=== PATIENT | male | born 1945 | race Caucasian/White ===

== ENCOUNTER 2017-12-26 10:58 | Observation (INO) ==
--- NOTE | 2017-12-26 11:07 | Emergency Department Note ---
Disposition Clinical Impression: Bradycardia, Tobacco abuse Pacemaker malfunction Qualifiers: Encounter type: initial encounter Qualified Code(s): T82.111A - Breakdown ( mechanical) of cardiac pulse generator (battery), initial encounter Disposition: Admitted As Inpatient Condition: Fair [facility] Provider[facility] - Forms: ED Satisfaction Letter Arrhythmia/Palpitations HPI - General Chief Complaint: ED Arrhythmia/Palpitations Stated Complaint: bradycardia Time Seen by Provider: 12/26/17 11:01 Source: patient, EMS Mode of arrival: EMS Limitations: no limitations Nursing Notes Reviewed: Yes Vital Signs Reviewed: Yes - History of Present Illness HPI Narrative: 72-year-old male with history of hypertension, tobacco use status post pacemaker proximally 8 years ago presents for evaluation from the [place] of fatigue. Patient states symptom onsets been over the past week. Patient states that these had a low heart rate. Patient's also noted some intermittent chest pain during this time. Patient reports that his chest pain was anterior chest pain lasting approximately 5 minutes with exertion and resolves with rest. Did have some right arm pain as well. Patient currently denies symptoms. Denies any chest pain currently. Denies any radiation of chest pain symptoms. No nausea vomiting or diaphoresis. No fevers or cough. Patient states he typically does not wear oxygen. [facility] his heart rate was noted be 39 with a preserved blood pressure. Patient is symptomatic with his bradycardia. - Related Data Allergies Allergy/AdvReac Type Severity Reaction Status Date / Time simvastatin Allergy Difficulty Verified 12/26/17 11:13 Breathing All systems ED: reviewed and negative except as stated. Constitutional: Denies: fever Cardiovascular: Reports: chest pain Respiratory: Denies: cough, dyspnea Gastrointestinal: Denies: abdominal pain, nausea, vomiting Past Medical History - Past Medical History Source: patient Physical Exam - General Limitations: no limitations General appearance: alert, in no apparent distress - Head Head exam: atraumatic, normal inspection - Eye Eye exam: Present: normal appearance, EOMI - ENT ENT exam: normal exam, mucous membranes moist - Neck Neck exam: Present: normal inspection, trachea midline - Chest Chest inspection: Present: normal inspection, symmetric chest wall rise - Respiratory Respiratory exam: Present: normal lung sounds bilaterally. Absent: respiratory distress - Cardiovascular Cardiovascular exam: Present: normal rhythm, bradycardia. Absent: systolic murmur - Abdominal Exam Abdominal exam: Present: soft, Non-Tender - Extremities Exam Extremities exam: Present: normal inspection. Absent: pedal edema - Back Exam Back exam: Present: normal inspection - Neurological Exam Neurological exam: Present: alert, oriented X3, CN II-XII intact - Skin Skin exam: Present: warm, dry, intact, normal color Course Course Narrative: Patient seen and examined. Patient's workup was initiated by the prior provider at the [place]. Included a chest x-ray which showed no evidence of acute pulmonary disease. Patient will get pacemaker interrogated. Basic labs including a troponin and BNP. Disposition admission. - Reevaluation(s) Reevaluation #1: Discussed with [employer] to states there is an pedis in the right ventricular lead since December [id number]. Patient's EKG appears to be sensed and then paste every other beat. [employer] ascending a tech for further evaluation. Time: 11:34 Reevaluation #2: Cardiology at bedside to evaluate the patient. Time: 11:49 - Consultations Consultation #1: Discussed with Dr. Velvet Ohara who will sent someone down to the ER to help evaluate the patient's pacemaker. Time: 11:39 Vital Signs Temperature 98.6 F 12/26/17 11:02 Pulse Rate 37 12/26/17 11:02 Respiratory Rate 16 12/26/17 11:02 Blood Pressure 148/72 12/26/17 11:02 O2 Sat by Pulse Oximetry 96 12/26/17 11:02 Temperature 98.6 F 12/26/17 11:02 Pulse Rate 36 12/26/17 11:56 Respiratory Rate 15 12/26/17 11:09 Blood Pressure 136/68 12/26/17 11:56 O2 Sat by Pulse Oximetry 97 12/26/17 11:56 Oxygen Delivery Oxygen Delivery Room Air Arrhythmia/Palpitations - MDM Narrative Medical decision making narrative: Patient presents with symptomatic bradycardia. Patient's pacemaker was interrogated and was found to have a broken lead. Patient pressures preserved. Patient's case was discussed with the account executive key accounts and has been at bedside. Patient will likely need intervention. Patient's been resting comfortably. Patient had basic labs which were unremarkable. Patient's fatigue is likely related to his bradycardia given his pacemaker malfunction with lead misplacement. Patient will be admitted to hospital service for further evaluation and management of his bradycardia. - Lab Data Lab results reviewed: Yes I reviewed the patient's lab results. Result diagrams: 12/26/17 11:17 12/26/17 11:17 Lab Results 12/26/17 12/26/17 12/26/17 Range/Units 11:17 11:17 11:17 WBC 6.4 (4.3-11.1) K/mcL RBC 4.69 (4.19-5.50) M/mcL Hgb 14.8 (12.9-16.9) g/dL Hct 43.9 (37.5-50.1) % MCV 93.6 (83.0-100.0) fL MCH 31.6 (28.0-33.3) pg MCHC 33.7 (31.6-35.5) g/dL RDW 14.9 H (11.5-14.5) % Plt Count 138 L (140-400) K/mcL MPV 9.9 (9.4-12.4) fL Immature Gran % 0.2 (0-4) % Seg Neutrophils % 64.8 % Lymphocytes % 24.7 % Monocytes % 8.9 % Eosinophils % 0.9 % Basophils % 0.5 % Neutrophils # 4.1 (1.6-8.9) K/mcL Lymphocytes # 1.6 (0.6-4.6) K/mcL Monocytes # 0.6 (0.0-1.3) K/mcL Eosinophils # 0.1 (0.0-0.6) K/mcL Basophils # 0.0 (0.0-0.2) K/mcL Sodium 139 (136-145) mEq/L Potassium 3.8 (3.5-5.1) mEq/L Chloride 108 H (98-107) mEq/L Carbon Dioxide 24 (23-29) mEq/L BUN 19 (8-23) mg/dL Creatinine 0.91 (0.70-1.30) mg/dL Est GFR ( Amer) > 60 (> 60) Est GFR (Non-Af Amer) > 60 (> 60) BUN/Creatinine Ratio 21 (6-26) Glucose 125 H (70-105) mg/dL Calculated Osmolality 292 (280-300) Calcium 8.4 L (8.6-10.3) mg/dL Troponin I < 0.03 (< 0.04) ng/mL B-Natriuretic Peptide 169 H (Less than 100) pg/mL - Radiology Data Radiology results reviewed: Yes I reviewed the patient's radiology results. - EKG Data EKG attestation: Yes I reviewed and interpreted this EKG. Rate: bradycardia [place]/QRS: right axis deviation Voltage: decreased voltage throughout T wave inversions noted in: III, v1 Interpretation: no acute changes, nonspecific ST-T wave changes
[2017-12-26] MEDS ORDERED: Aspirin 81 MG TAB.CHEW PO ONE (11:23)
[2017-12-26 11:38] LABS: Basophils % 0.5 %; Eosinophils # 0.1 K/mcL (0.0-0.6); Eosinophils % 0.9 %; Hematocrit 43.9 % (37.5-50.1); Hemoglobin 14.8 g/dL (12.9-16.9); Immature Granulocytes % 0.2 % (0-4); Lymphocytes # 1.6 K/mcL (0.6-4.6); Lymphocytes % 24.7 %; Mean Corpuscular HGB Conc 33.7 g/dL (31.6-35.5); Mean Corpuscular Hemoglobin 31.6 pg (28.0-33.3); Mean Corpuscular Volume 93.6 fL (83.0-100.0); Mean Platelet Volume 9.9 fL (9.4-12.4); Monocytes # 0.6 K/mcL (0.0-1.3); Monocytes % 8.9 %; Neutrophils # 4.1 K/mcL (1.6-8.9); Platelet Count 138 K/mcL (140-400); Red Blood Count 4.69 M/mcL (4.19-5.50); Red Cell Distribution Width 14.9 % (11.5-14.5); Segmented Neutrophils % 64.8 %
[2017-12-26 11:49] LABS: BUN/Creatinine Ratio 21 (6-26); Blood Urea Nitrogen 19 mg/dL (8-23); Calcium 8.4 mg/dL (8.6-10.3); Carbon Dioxide 24 mEq/L (23-29); Chloride 108 mEq/L (98-107); Glucose 125 mg/dL (70-105); Osmolality,Calculated 292 (280-300); Potassium 3.8 mEq/L (3.5-5.1); Sodium 139 mEq/L (136-145); eGFR For Non-African Americans > 60 (> 60)
[2017-12-26 11:50] LABS: Troponin I < 0.03 ng/mL (< 0.04)
--- NOTE | 2017-12-26 12:14 | Electrophysiology Consult Note ---
<Clay Carmona R - Last Filed: 12/26/17 12:11> Date of Encounter: 12/26/17 Time of Encounter: 12:00 Assessment and Plan (1) Bradycardia Current Visit: Yes Status: Acute Per Cardiology: Suspected potential lead fracture with subsequent lack of pacer capture contributing to fatigue, dizziness, chest pain, and his exertion. Troponin negative. Will check echo now. Pacer interrogation showed elevated impedance. Reviewed and discussed with Dr. Jean-Paul Ohara, [employer] device rep in for manual evaluation. Anticipated lead change today. Patient family verbalized understanding and agree to plan. All questions answered. Discussion w patient/family: The assessment and plan as outlined above was discussed with the patient and/or family members who expressed understanding and agreement. All questions were answered. Thank you for involving us in the care of your patient. Please call with any questions. History of Present Illness Consult date: 12/26/17 Requesting physician: Jose A Uribe Consult reason: Bradycardia, Fatigue, Pacer malfunction Chief complaint: Fatigue History of present illness: Mr. Reyes is a 72-year-old male with history of hypertension, tobacco, and history of pacemaker implantation by Dr. Celeste about 8 years ago. Patient reports lack of cardiology to follow-up since that time. Critical G consult for fatigue, bradycardia, concern for pacer malfunction. Patient seen with family at bedside. Reports his normal state of health up until about one week ago. Reports sudden onset of fatigue. Additionally expressing episodes of dizziness, however denies any syncope or falls. He denies any active bleeding or blood loss. Reports for the past one week has noticed short of breath at rest and with exertion. Reports some intermittent chest pressure with exertion that subsides after a few minutes with resting. He denies any recent fever, chills, nausea, vomiting, infectious process. Denies any other concerns or complaints. Past Med Surg Social Fam HX - Past Medical History Attestation: Yes The following information was validated with the patient. Source: patient, old records reviewed, obtained from family Medical history: coronary artery disease, diabetes, hypertension Psychiatric history: anxiety, depression, PTSD - Social History Smoking Status: Current every day smoker Smokeless Tobacco Status: No Alcohol use: occasionally Drug use: none Medications and Allergies 3 Allergy/AdvReac Type Severity Reaction Status Date / Time simvastatin Allergy Difficulty Verified 12/26/17 11:13 Breathing All Systems Review: The remainder of the systems were reviewed and are negative - Constitutional Constitutional: fatigue - Cardiovascular Cardiovascular: as per HPI, chest pain with exertion, dyspnea at rest, dyspnea on exertion, slow heart rate Physical Examination Vital Signs, Last 4 Hours Temp Pulse Resp BP Pulse Ox 12/26/17 11:56 36 136/68 97 12/26/17 11:09 38 15 148/72 97 12/26/17 11:02 98.6 F 37 16 148/72 96 General: Conversant, No Apparent Distress HEENT: Atraumatic, Normocephaly, Mucus Membranes Moist Neck: No JVD, Normal carotid pulses Cardiac: Normal S1 and S2, No Murmur, Other (HR 30's) Lungs: Normal Breath Sounds, No Wheeze, Rales, Rhonchi Neuro: Alert and responsive, No focal deficits noted Abdomen: Soft, Non-Tender Skin: No rashes noted on visualized skin Musculoskeletal: No Chest Wall Tenderness Extremities: No Clubbing, No Cyanosis, No Edema, Normal Pulses Results 12/26/17 11:17 12/26/17 11:17 Lab Results Laboratory Tests 12/26/17 12/26/17 12/26/17 11:17 11:17 11:17 Hgb 14.8 Hct 43.9 Creatinine 0.91 Est GFR (Non-Af Amer) > 60 Troponin I < 0.03 B-Natriuretic Peptide 169 H - Imaging and Cardiology Echo: pending - EKG Interpretation EKG results cardiology: personally reviewed (pacer lack of capture) Consult Discharge Plan - Plan <Jean-Paul Ohara - Last Filed: 12/26/17 14:04> Date of Encounter: 12/26/17 - Attending Attestation I have personally performed a face to face evaluation on this patient. I have reviewed and agree with the care plan. History and Exam by me shows: I have personally performed a face to face evaluation on this patient. I have reviewed and agree with the care plan. History and Exam by me shows: Known history of AV block and pacemaker. Has not had device check for some time. has been feeling poorly for a week or more. Found to have RV lead fracture on device interrogation. Will plan for RV lead replacement. Assessment and Plan Discussion w patient/family: The assessment and plan as outlined above was discussed with the patient and/or family members who expressed understanding and agreement. All questions were answered. Thank you for involving us in the care of your patient. Please call with any questions. History of Present Illness History of present illness: Mr. Reyes is a 72 year old male All Systems Review: The remainder of the systems were reviewed and are negative Physical Examination Vital Signs, Last 4 Hours Pulse Resp BP Pulse Ox 12/26/17 13:03 62 15 161/90 96 Results 12/26/17 11:17 12/26/17 11:17
[2017-12-26] MEDS ORDERED: Naloxone 0.4 MG/ML INJ IVP PRN (13:36)
[2017-12-26] MEDS ORDERED: Acetaminophen 325 MG TABLET PO PRN (13:36)
[2017-12-26] MEDS ORDERED: traMADol 50 MG TABLET PO PRN (13:36)
[2017-12-26] MEDS ORDERED: *HR* Dextrose 50 % in Water (Syg) 50 ML SYRINGE IVP PRN (13:38)
[2017-12-26] MEDS ORDERED: D5% in Water 1,000 ML IVC PRN (13:38)
[2017-12-26] MEDS ORDERED: Dextrose Gel 15 GM/37.5 ML TUBE PO PRN ×2 (13:38)
--- NOTE | 2017-12-26 13:49 | Internal Med History&Physical ---
Addendum entered and electronically signed by Opal Ugalde 12/26/17 14:49: Original Note: <Opal Ugalde - Last Filed: 12/26/17 13:46> Date of Encounter: 12/26/17 Time of Encounter: 13:46 Internal Medicine - H&P: HPI Admitted From: Home Plans for Post Hospital Care: Home History of present illness: Mr. 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 Patient states symptom onsets been over the past week. Patient states that these had a low heart rate. Patient's also noted some intermittent chest pain during this time. Patient reports that his chest pain was anterior chest pain lasting approximately 5 minutes with exertion and resolves with rest. Did have some right arm pain as well. Patient currently denies symptoms. Denies any chest pain currently. Denies any radiation of chest pain symptoms. No nausea vomiting or diaphoresis. No fevers or cough. Patient states he typically does not wear oxygen. [facility] his heart rate was noted be 39 with a preserved blood pressure. Patient is symptomatic with his bradycardia. Cardiology was consulted at the ED. [employer] was contacted and pacemaker setting was adjusted by the personnel from [employer]. Telemetry monitoring showed good capture with heart rate around 60, patient reported improved symptoms. Patient will be admitted as observation for further evaluation and management. Past Med Surg Social Fam HX - Past Medical History Medical history: coronary artery disease, diabetes, hypertension Psychiatric history: anxiety, depression, PTSD - Social History Smoking Status: Current every day smoker Smokeless Tobacco Status: No Alcohol use: occasionally Drug use: none Internal Medicine - H&P: Meds 3 Allergy/AdvReac Type Severity Reaction Status Date / Time simvastatin Allergy Difficulty Verified 12/26/17 14:03 Breathing All Systems PM: A 10-system review of systems was performed and is negative for pertinent findings except as documented above in the HPI. Review of systems: REVIEW OF SYSTEMS: CONSTITUTIONAL: No weight loss, fever, chills, weakness or fatigue. HEENT: Eyes: No visual loss, blurred vision, double vision or yellow sclerae. Ears, Nose, Throat: No hearing loss, sneezing, congestion, runny nose or sore throat. SKIN: No rash or itching. CARDIOVASCULAR: see HPI. RESPIRATORY: No shortness of breath, cough or sputum. GASTROINTESTINAL: No anorexia, nausea, vomiting or diarrhea. No abdominal pain or blood. GENITOURINARY: No dysuria, urgency, or frequency. NEUROLOGICAL: No headache, dizziness, syncope, paralysis, ataxia, numbness or tingling in the extremities. No change in bowel or bladder control. MUSCULOSKELETAL: No muscle, back pain, joint pain or stiffness. HEMATOLOGIC: No anemia, bleeding or bruising. LYMPHATICS: No enlarged nodes. No history of splenectomy. PSYCHIATRIC: No history of depression or anxiety. ENDOCRINOLOGIC: No reports of sweating, cold or heat intolerance. No polyuria or polydipsia. - Constitutional Vitals: Temp Pulse Resp BP Pulse Ox 98.6 F 62 15 161/90 96 12/26/17 11:02 12/26/17 13:03 12/26/17 13:03 12/26/17 13:03 12/26/17 13:03 General appearance: Present: A&O X 3 Exam: PHYSICAL EXAMINATION: GENERAL APPEARANCE: The patient is alert, oriented and in no acute distress. HEENT: Head is normocephalic. The sinuses are nontender. Pupils are equal and reactive. The nares are patent. Oropharynx clear without lesions. NECK: Supple without lymphadenopathy. HEART: Regular rate and rhythm. LUNGS: No crackles or wheezes are heard. ABDOMEN: Soft, nontender, nondistended with good bowel sounds heard. Inguinal area is normal. EXTREMITIES: Without cyanosis, clubbing or edema. NEUROLOGICAL: Gross nonfocal. SKIN: Warm and dry without any rash. Internal Med - H&P Results - Labs CBC & Chem 7: 12/26/17 11:17 12/26/17 11:17 - Assessment and plan (1) Bradycardia Current Visit: Yes Status: Acute Assessment and plan: 72-year-old male with past medical history of high grade AV block status post pacemaker 8 years ago. Patient presented with severe bradycardia with HR between 30-40. He had severe fatigue and weakness. EKG revealed failure of capture. [employer] was contacted and the pacemaker setting was adjusted by their personnel. Repeat EKG showed good ventricular capture with HR at 60. Patient instantly reported improved symptoms. Cardiology was consult, echocardiogram was ordered. (2) Pacemaker malfunction Current Visit: Yes Status: Acute Assessment and plan: Cardiology and [employer] are following. Qualifiers: Encounter type: initial encounter Qualified Code(s): T82.111A - Breakdown ( mechanical) of cardiac pulse generator (battery), initial encounter (3) Diabetes mellitus Current Visit: Yes Status: Acute Assessment and plan: Hold home oral agents, started patient on insulin sliding scale, continue medications for diabetic neuropathy. Qualifiers: Diabetes mellitus type: type 2 Diabetes mellitus care home insulin use: without care home use Diabetes mellitus complication status: with neurologic complications Diabetes mellitus complication detail: with unspecified neuropathy Qualified Code(s): E11.40 - Type 2 diabetes mellitus with diabetic neuropathy, unspecified (4) DVT prophylaxis Current Visit: Yes Status: Acute Assessment and plan: Heparin subcutaneous. - Time Spent With Patient Total time spent is greater than 50% in coordination of care (as documented) at patient's floor/unit and/or counseling patient: Greater than 35 minutes <Lacho Alaniz - Last Filed: 12/26/17 18:31> Date of Encounter: 12/26/17 Internal Medicine - H&P: HPI History of present illness: Mr. Reyes is a 72 year old male All Systems PM: A 10-system review of systems was performed and is negative for pertinent findings except as documented above in the HPI. - Constitutional Vitals: Temp Pulse Resp BP Pulse Ox 97.6 F 67 15 142/85 96 12/26/17 17:30 12/26/17 18:00 12/26/17 18:00 12/26/17 18:00 12/26/17 18:00 Internal Med - H&P Results - Labs CBC & Chem 7: 12/26/17 11:17 12/26/17 11:17 - Impressions ITS Impressions Chest X-Ray 12/26/17 16:22 IMPRESSION: Calcific atherosclerotic disease aorta. No acute disease. New left ventricular lead placed without removal of old left ventricular lead. D/ / Brian Riojas / Brian Riojas Interpreting Provider: Brian Riojas - Attending Attestation I saw and examined this patient independently, and my medical decision making was reviewed with the REPORTING ANALYST on 2017. I agree with the documented findings, assessment and treatment plan as described in the progress note or discharge summary. Patient just came back from [employer]y lab[employer], he tolerated procedure, feels great, HR 67 , denies chest pain and SOB. monitor ON, judie discharge tomorrow when cardiology is ok - Time Spent With Patient Total time spent is greater than 50% in coordination of care (as documented) at patient's floor/unit and/or counseling patient:
--- NOTE | 2017-12-26 14:35 | Pre-Sedation Evaluation ---
Pre-sedation evaluation - Pre-sedation checklist Date of procedure: 12/26/17 Procedure: RV lead replacement Recent Vitals: Last Vital Signs Temp 98.6 F 12/26/17 11:02 Pulse 62 12/26/17 13:03 Resp 15 12/26/17 13:03 BP 161/90 12/26/17 13:03 Pulse Ox 96 12/26/17 13:03 H&P (including ROS) documented in medical record: Yes Previous reaction to sedatives/anesthetics: No Dietary Status: NPO 6 hours prior to procedure Airway Assessment: Patient can open mouth completely, TMJ function normal, Micrognathia (under-bite, receding chin) absent Dentition: No loose teeth or bridges Possible difficult airway: No ASA Classification *see protocol: CLASS II-Mild systemic disease Plan of Care: Pt appropriate candidate for procedure/moderate/conscious sedation , Risks/benefits of procedure/sedation discussed w/ patient/family Cardiac Registry (Cardio Only) - Functional Capacity - Clincal Frailty Scale
[2017-12-26] MEDS ORDERED: *HR* FentaNYL (PF) 100 MCG/2 ML VIAL ONE (15:07)
[2017-12-26] MEDS ORDERED: *HR* Midazolam HCl 2 MG/2 ML VIAL ONE (15:07)
[2017-12-26] MEDS ORDERED: 0.9 % Sodium Chloride 500 ML ONE (15:07)
[2017-12-26] MEDS ORDERED: ISOVUE-370 200 ML INFUS..BTL IV ONE (15:08)
[2017-12-26] MEDS ORDERED: Water for inj. (sterile) 10 ML IV ONE (15:08)
[2017-12-26] MEDS ORDERED: 0.9 % Sodium Chloride 1,000 ML ONE (15:08)
[2017-12-26] MEDS: Insulin LISPRO 300 UNITS/3 ML VIAL SQ SCH (17:09)
[2017-12-26] MEDS: Gabapentin 300 MG CAPSULE PO SCH ×2 (18:20→23:08)
[2017-12-26] MEDS: *HR* Heparin 5,000 UNIT/ML VIAL SQ SCH (18:20)
[2017-12-26] MEDS ORDERED: Insulin LISPRO 300 UNITS/3 ML VIAL SQ SCH (21:00)
[2017-12-26] MEDS ORDERED: Gabapentin 300 MG CAPSULE PO SCH (21:00)
[2017-12-27 04:17] LABS: Basophils % 0.5 %; Eosinophils # 0.1 K/mcL (0.0-0.6); Eosinophils % 1.7 %; Hemoglobin 14.4 g/dL (12.9-16.9); Immature Granulocytes % 0.3 % (0-4); Lymphocytes # 1.5 K/mcL (0.6-4.6); Lymphocytes % 22.8 %; Mean Corpuscular HGB Conc 33.5 g/dL (31.6-35.5); Mean Corpuscular Hemoglobin 31.4 pg (28.0-33.3); Mean Corpuscular Volume 93.9 fL (83.0-100.0); Mean Platelet Volume 10.4 fL (9.4-12.4); Monocytes # 0.6 K/mcL (0.0-1.3); Monocytes % 9.1 %; Neutrophils # 4.2 K/mcL (1.6-8.9); Platelet Count 135 K/mcL (140-400); Red Blood Count 4.58 M/mcL (4.19-5.50); Segmented Neutrophils % 65.6 %
[2017-12-27 04:20] LABS: INR 1.4; Prothrombin Time 15.2 Seconds (9.4-12.1)
[2017-12-27 04:22] LABS: Activated Partial Thrombo Time 32.2 Seconds (26.0-36.0)
[2017-12-27 04:39] LABS: BUN/Creatinine Ratio 18 (6-26); Blood Urea Nitrogen 16 mg/dL (8-23); Calcium 8.2 mg/dL (8.6-10.3); Carbon Dioxide 24 mEq/L (23-29); Chloride 108 mEq/L (98-107); Glucose 99 mg/dL (70-105); Osmolality,Calculated 289 (280-300); Potassium 3.8 mEq/L (3.5-5.1); Sodium 139 mEq/L (136-145); eGFR For Non-African Americans > 60 (> 60)
[2017-12-27] MEDS: *HR* Heparin 5,000 UNIT/ML VIAL SQ SCH (05:35)
[2017-12-27] MEDS: Insulin LISPRO 300 UNITS/3 ML VIAL SQ SCH ×2 (07:58→11:37)
[2017-12-27] MEDS: Gabapentin 300 MG CAPSULE PO SCH ×2 (08:02→11:45)
[2017-12-27] MEDS ORDERED: Aspirin Enteric Coated 81 MG Tablet PO SCH (09:00)
[2017-12-27] MEDS ORDERED: Spironolactone 25 MG TABLET PO SCH (09:00)
[2017-12-27] MEDS ORDERED: amLODIPine 5 MG TABLET PO SCH (09:00)
--- NOTE | 2017-12-27 10:51 | Electrophysiology ProgressNote ---
Date of Encounter: 12/27/17 Time of Encounter: 10:48 Assessment and Plan (1) Pacemaker malfunction Current Visit: Yes Status: Acute Now resolved s/p lead revision yesterday. Left chest device site healing well. No bleeding, hematoma or ecchymosis noted. Steri strips intact. Restrictions discussed. Device check and CXR okay. Cardiology/EP signing off. Reconsult PRN. Wound check in 7-10 days, device check in 4-6 weeks and follow-up with Dr. Jean-Paul Ohara in 3 months. Qualifiers: Encounter type: initial encounter Qualified Code(s): T82.111A - Breakdown ( mechanical) of cardiac pulse generator (battery), initial encounter (2) Bradycardia Current Visit: Yes Status: Acute Lead fracture with subsequent lack of pacer capture contributing to fatigue, dizziness, chest pain, and his exertion. Troponins negative. TTE EF preserved. S/P lead revision yesterday, symptoms now resolved. Cardiology/EP signing off. Reconsult PRN. Will coordinate outpt follow-up. Discussion w patient/family: The assessment and plan as outlined above was discussed with the patient and/or family members who expressed understanding and agreement. All questions were answered. Thank you for involving us in the care of your patient. Please call with any questions. I will discuss all the above with Dr. Jean-Paul Ohara and make changes as necessary. Subjective Principal diagnosis: PPM malfunction, bradycardia Interval history: S/P PPM lead revision yesterday. No acute complaints today. CXR and device check okay. TTE reviewed--EF preserved. Objective Vital Signs, Last 4 Hours Temp Pulse Resp BP Pulse Ox 12/27/17 06:49 98.1 F 63 16 133/83 96 Vital Signs Temp Pulse Resp BP Pulse Ox 12/27/17 06:49 98.1 F 63 16 133/83 96 12/27/17 04:00 97.9 F 84 16 141/79 95 12/27/17 00:00 97.8 F 60 15 147/81 95 12/26/17 20:00 98 F 62 16 139/74 96 12/26/17 18:57 97.7 F 66 16 153/81 96 12/26/17 18:30 70 16 167/78 96 12/26/17 18:00 67 15 142/85 96 12/26/17 17:30 97.6 F 60 14 137/73 95 12/26/17 16:58 62 14 148/90 94 12/26/17 16:51 98.1 F 62 16 148/90 97 12/26/17 13:03 62 15 161/90 96 12/26/17 11:56 36 136/68 97 12/26/17 11:09 38 15 148/72 97 12/26/17 11:02 98.6 F 37 16 148/72 96 Intake and Output 12/26/17 12/27/17 12/27/17 23:59 07:59 15:59 Intake Total 100 / 100 300 / 300 600 / 600 Output Total 350 / 350 925 / 925 Balance -250 / -250 -625 / -625 600 / 600 Intake: IV Fluids 100 / 100 Ancef 2,000 MG In 0.9 % Sodium 100 / 100 Chloride 100 ML @ 200 mls/hr IVPB Q8HR [facility] Rx#:[id number] Oral 0 / 0 300 / 300 600 / 600 Output: Urine 350 / 350 925 / 925 Other: Meal Breakfast Percent of Meal Consumed 100% Weight 101.5 kg Blood Glucose* 184 126 Patient Weight 12/27/17 23:59 Weight 101.5 kg General: Conversant, No Apparent Distress HEENT: Atraumatic, Normocephaly, Mucus Membranes Moist Neck: No JVD, Normal carotid pulses Cardiac: Reg Rate and Rhythm, Normal S1 and S2, No Murmur Lungs: Normal Breath Sounds, No Wheeze, Rales, Rhonchi Neuro: Alert and responsive, No focal deficits noted Abdomen: Soft, Non-Tender Skin: Other (left chest device site healing well. No bleeding, hematoma or ecchymosis.) Musculoskeletal: No Chest Wall Tenderness Extremities: No Clubbing, No Cyanosis, No Edema, Normal Pulses Results 12/27/17 03:13 12/27/17 03:13 Lab Results 12/27/17 12/27/17 12/27/17 03:13 03:13 03:13 WBC 6.4 Hgb 14.4 Hct 43.0 Plt Count 135 L INR 1.4 APTT 32.2 Sodium 139 Potassium 3.8 Chloride 108 H Carbon Dioxide 24 BUN 16 Creatinine 0.87 Glucose 99 Calcium 8.2 L Magnesium 2.0 Short CBC 12/27/17 12/26/17 Range/Units 03:13 11:17 WBC 6.4 6.4 (4.3-11.1) K/mcL Hgb 14.4 14.8 (12.9-16.9) g/dL Hct 43.0 43.9 (37.5-50.1) % Plt Count 135 L 138 L (140-400) K/mcL Neutrophils # 4.2 4.1 (1.6-8.9) K/mcL BMP 12/27/17 12/26/17 Range/Units 03:13 11:17 Sodium 139 139 (136-145) mEq/L Potassium 3.8 3.8 (3.5-5.1) mEq/L Chloride 108 H 108 H (98-107) mEq/L Carbon Dioxide 24 24 (23-29) mEq/L BUN 16 19 (8-23) mg/dL Creatinine 0.87 0.91 (0.70-1.30) mg/dL Glucose 99 125 H (70-105) mg/dL Calcium 8.2 L 8.4 L (8.6-10.3) mg/dL Cardiac Enzymes 12/26/17 Range/Units 11:17 Troponin I < 0.03 (< 0.04) ng/mL Impressions Echocardiogram 12/26/17 12:08 Impressions: LVEF 60%. Normal LV chamber size, wall thickness and function. Mild left ventricular diastolic dysfunction. Atypical septal motion consistent with paced rhythm. Normal right ventricular structure and function. No evidence of pulmonary hypertension. A device lead was visualized in the right atrium and right ventricle. No significant valvular dysfunction. Left Ventricular Wall Motion: Rest Echo Findings All wall segments showed normal motion. Findings: Study Quality * Technically adequate exam. ECG Findings * Paced rhythm. Left Ventricle * LVEF 60%. * Normal LV chamber size, wall thickness and function. * Mild left ventricular diastolic dysfunction. * Atypical septal motion consistent with paced rhythm. Right Ventricle * Normal right ventricular structure and function. Left Atrium * Mildly dilated left atrium. Right Atrium * Normal right atrial size. Aortic Valve * Trileaflet aortic valve with normal function. * No aortic regurgitation. * No aortic stenosis. Mitral Valve * Normal mitral valve structure and function. * No mitral stenosis. * Trace mitral regurgitation. Tricuspid Valve * Normal tricuspid valve structure and function. * Trace tricuspid regurgitation. * No evidence of pulmonary hypertension. Pulmonic Valve * Normal pulmonic valve structure and function. * No pulmonic regurgitation. Aorta * Normally sized aortic root. Pericardium * The pericardium appears normal. IVC * Normal IVC dimensions and inspiratory collapse. Device lead * A device lead was visualized in the right atrium and right ventricle. Pulmonary Artery * Normal visualized portions of the main pulmonary artery. Chest X-Ray 12/26/17 16:22 IMPRESSION: Calcific atherosclerotic disease aorta. No acute disease. New left ventricular lead placed without removal of old left ventricular lead. D/ / Brian Riojas / Brian Riojas Interpreting Provider: Brian Riojas Chest X-Ray 12/27/17 06:00 IMPRESSION: Stable chest. No acute cardiopulmonary process. D/ / 12/27/2017 08:12:54 Conner Salas MD / [email or web address] Interpreting Provider: Conner Salas MD Active Medications Acetaminophen (Tylenol) 650 mg PO Q6HR PRN PRN Reason: Mild Pain/Fever Stop: 06/27/18 13:37 Amlodipine Besylate (Norvasc) 2.5 mg PO DAILY SARA PRN Reason: Protocol Stop: 06/28/18 09:01 Last Admin: 12/27/17 08:02 Dose: 2.5 mg Aspirin (Aspirin Ec) 81 mg PO DAILY [facility] Stop: 06/28/18 09:01 Last Admin: 12/27/17 08:03 Dose: 81 mg Dextrose/Water (Dextrose 50% (Syg)) 25 ml IVP AD PRN PRN Reason: Hypoglycemia Stop: 06/27/18 13:39 Gabapentin (Neurontin) 300 mg PO QID [facility] Stop: 06/27/18 17:01 Last Admin: 12/27/17 08:02 Dose: 300 mg Glucagon (Glucagen) 1 mg IM ONCE PRN PRN Reason: Hypoglycemia Stop: 06/27/18 13:39 Glucose (Gluctose) 15 gm PO ONCE PRN PRN Reason: Hypoglycemia Stop: 06/27/18 13:39 Glucose (Gluctose) 30 gm PO ONCE PRN PRN Reason: Hypoglycemia Stop: 06/27/18 13:39 Heparin Sodium (Porcine) (Heparin) 5,000 unit SQ Q12HCO SARA Stop: 06/27/18 18:01 Last Admin: 12/27/17 05:35 Dose: 5,000 unit Dextrose (Dextrose 5%) 1,000 mls @ 100 mls/hr IVC .Q10H PRN PRN Reason: HYPOGLYCEMIA Stop: 06/27/18 13:39 Insulin Human Lispro (Humalog) 0 units SQ HS SARA PRN Reason: Protocol Stop: 06/27/18 21:01 Last Admin: 12/26/17 20:22 Dose: Not Given Insulin Human Lispro (Humalog) 0 units SQ TIDAC SARA PRN Reason: Protocol Stop: 06/27/18 16:31 Last Admin: 12/27/17 07:58 Dose: Not Given Naloxone HCl (Narcan) 0.4 mg IVP Q2MIN PRN PRN Reason: SEE COMMENTS Stop: 06/27/18 13:37 Spironolactone (Aldactone) 25 mg PO DAILY [facility] Stop: 06/28/18 09:01 Last Admin: 12/27/17 08:03 Dose: 25 mg Tramadol HCl (Ultram) 50 mg PO Q6HR PRN PRN Reason: Moderate Pain Stop: 06/27/18 13:37 - Imaging and Cardiology Echo: report reviewed Consult Discharge Plan - Plan Instructions: Pacemaker (DC), Diabetes Mellitus Type 2 in Adults (DC), Bradycardia (DC), Cigarette Smoking and Your Health, Traffic Representative (GEN) Additional Instructions: ACTIVITY: Moderate activity for the next 7 days. No lifting more than 5 pounds ( gallon of milk) for 4-6 weeks. Avoid lifting your arm on the same side as the device for 4 weeks. BATHING /SHOWERING: Do not remove the large bandage over the site for 2 days. Do not allow the device to get wet for 7-10 days. You may bathe/shower, but do not use soap and water on the site. When bathing, keep the site dry by covering with Saran wrap or a towel. WOUND CARE: The white steri-strips will start to peel away and come off after 14 days, or your doctor will remove them after [address] anything into or on top of the incision. Do not use cotton swabs. Do not use any antibiotic ointment or Vitamin E on the site. REMINDERS: You may use electrical devices, such as, microwaves, hair dryers, electric razors, electric blankets, etc. as long as they are in good condition and kept 6 -8 inches away from the device. It is recommended to use cell phones on the opposite side of your device. Notify security personnel at the airport that you have a device before you go through airport security screening. When at places with security monitors, such as a grocery store, do not linger near these monitors. It is fine to walk past them in a normal manner. Refer to your owners manual for more specific directions. CARRY YOUR PACEMAKER/ICD CARD WITH YOU AT ALL TIMES Return to work as instructed per physician Resume driving as instructed per physician Keep all scheduled follow up appointments Resume medications as instructed Contact [facility] ( ) if: You develop excessive bleeding from insertion or wound site not controlled by applying pressure You develop a fever greater than 101 degrees Fahrenheit Your incision becomes reddened at or around the site Your incision develops yellowish or greenish drainage or development of white pimple-like bumps You experience excessive pain You develop swelling in your ankles You experience muscle switching You develop excessive hiccupping If you experience chest pain, shortness of breath, dizziness, or extreme tiredness, stop the activity and rest. Please notify [facility] office if you experience any of these symptoms and they are not relieved by rest please call 911! Referrals: [facility] [Primary Care Provider] -
[2017-12-27 11:14] VITALS: BP 136/75
--- NOTE | 2017-12-27 11:42 | Discharge Summary ---
- NOTES TO OUTPATIENT PROVIDER Notes to Outpatient Provider: f/u with cardiology within 3 week for pacemaker check. F/u with Dr. Ohara within 3 month. F/u with PCP within a week for wound check. 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 EKG upon arrival revealed bradycardia with heart rate at 37, RV failure of capture. CXR showed broken pacemaker lead, which was replaced by EP cardiology. EKG post-procedure showed good RV capture with HR at 60. Troponins was negative. repeat TTE showed EF preserved. Pt symptoms including fatigue, dizziness, chest pain, and his exertion all resolved. Pt will be discharged home today. F/u with PCP, EP cardiology and general cardiology as scheduled. Discharge discussed with: patient Time spent discussing smoking cessation with patient: more than 10 minutes - Time Spent with Patient Total time spent providing and/or coordinating discharge services: Greater than 30 minutes - Discharge Medications Prescriptions: cephALEXin [Keflex] 500 mg PO BID #10 capsule Home Medications: Amlodipine Besylate 2.5 mg PO DAILY 12/26/17 [History] Aspirin [Lo-Dose Aspirin EC] 81 mg PO DAILY 12/26/17 [History] Gabapentin [Neurontin] 300 mg PO QID 12/26/17 [History] Metformin HCl [Fortamet] 1,000 mg PO DAILY 12/26/17 [History] Salsalate [Disalcid] 750 mg PO BID 12/26/17 [History] Sildenafil Citrate [Viagra] 50 mg PO AD PRN 12/26/17 [History] Spironolactone [Aldactone] 25 mg PO DAILY 12/26/17 [History] glipiZIDE [Glipizide] 10 mg PO BID 12/26/17 [History] cephALEXin [Keflex] 500 mg PO BID #10 capsule 12/27/17 [Rx] Allergies/Adverse Reactions: 3 Allergy/AdvReac Type Severity Reaction Status Date / Time simvastatin Allergy Difficulty Verified 12/26/17 14:03 Breathing Date of admission: 12/26/17 12:41 Primary care physician: PCP VILMA Anticipated date of discharge: 12/27/17 - Constitutional Vitals: Temp Pulse Resp BP Pulse Ox 98.1 F 63 16 136/75 93 12/27/17 11:09 12/27/17 11:09 12/27/17 11:09 12/27/17 11:09 12/27/17 11:09 General appearance: Present: A&O X 3 Exam: PHYSICAL EXAMINATION: GENERAL APPEARANCE: The patient is alert, oriented and in no acute distress. HEENT: Head is normocephalic. The sinuses are nontender. Pupils are equal and reactive. The nares are patent. Oropharynx clear without lesions. NECK: Supple without lymphadenopathy. HEART: Paced rhythm. Cry chest pacemaker insertion site dry and clean, no hematoma. LUNGS: No crackles or wheezes are heard. ABDOMEN: Soft, nontender, nondistended with good bowel sounds heard. Inguinal area is normal. EXTREMITIES: Without cyanosis, clubbing or edema. NEUROLOGICAL: Gross nonfocal. SKIN: Warm and dry without any rash. - Patient Status Disposition: Home, Self-Care Condition: Fair Functional capacity at discharge: independent ambulation Overall status at discharge: patient is back to baseline - Discharge Instructions Instructions: Pacemaker (DC), Diabetes Mellitus Type 2 in Adults (DC), Bradycardia (DC), Cigarette Smoking and Your Health, Potline Monitor (GEN) Follow [facility] With: [facility] [Primary Care Provider] - Additional Instructions: ACTIVITY: Moderate activity for the next 7 days. No lifting more than 5 pounds ( gallon of milk) for 4-6 weeks. Avoid lifting your arm on the same side as the device for 4 weeks. BATHING /SHOWERING: Do not remove the large bandage over the site for 2 days. Do not allow the device to get wet for 7-10 days. You may bathe/shower, but do not use soap and water on the site. When bathing, keep the site dry by covering with Saran wrap or a towel. WOUND CARE: The white steri-strips will start to peel away and come off after 14 days, or your doctor will remove them after [address] anything into or on top of the incision. Do not use cotton swabs. Do not use any antibiotic ointment or Vitamin E on the site. REMINDERS: You may use electrical devices, such as, microwaves, hair dryers, electric razors, electric blankets, etc. as long as they are in good condition and kept 6 -8 inches away from the device. It is recommended to use cell phones on the opposite side of your device. Notify security personnel at the airport that you have a device before you go through airport security screening. When at places with security monitors, such as a grocery store, do not linger near these monitors. It is fine to walk past them in a normal manner. Refer to your owners manual for more specific directions. CARRY YOUR PACEMAKER/ICD CARD WITH YOU AT ALL TIMES Return to work as instructed per physician Resume driving as instructed per physician Keep all scheduled follow up appointments Resume medications as instructed Contact [facility] ( ) if: You develop excessive bleeding from insertion or wound site not controlled by applying pressure You develop a fever greater than 101 degrees Fahrenheit Your incision becomes reddened at or around the site Your incision develops yellowish or greenish drainage or development of white pimple-like bumps You experience excessive pain You develop swelling in your ankles You experience muscle switching You develop excessive hiccupping If you experience chest pain, shortness of breath, dizziness, or extreme tiredness, stop the activity and rest. Please notify [facility] office if you experience any of these symptoms and they are not relieved by rest please call 911! - Diet and Activity Activity: increase activity as tolerated Diet: diabetic diet, low fat, low cholesterol, low salt diet
[2017-12-27] MEDS ORDERED: cephALEXin 500 MG CAPSULE PO SCH (21:00)
--- NOTE | 2018-01-01 07:56 | Electrocardiograph Report ---
[place] [id number] Test Date: 2017-12-26 Pat Name: Osiel Reyes Department: 104 Room: 2NE16 Gender: M Manager Utilization Review: : 1945 Requested By: Jose A Uribe Order Number: [id number] Reading MD: Dago Hester Measurements Intervals [place] Rate: 38 P: [facility]: 0 QRS: 125 QRSD: 184 T: -45 QT: 518 QTc: 437 Interpretive Statements AV DISASSOCIATION WITH VENTRICULAR ESCAPE RHYTHM MARKED RIGHT AXIS DEVIATION Electronically Signed On 01-01-2018 7:55:13 EDT by Dago Hester
== END 2017-12-27 12:15 | disposition home or self-care (01) ==
LOC: EMEROO 10:58 → INTOOBSV 12:41 → 2NENU 12:41
PROVIDERS: ADMIT Internal Medicine; ATTEND Internal Medicine

== ENCOUNTER 2021-04-05 15:29 | Inpatient (IN) ==
[2021-04-05 17:16] LABS: Basophils % 0.2 %; Mean Corpuscular HGB Conc 33.5 g/dL (31.6-35.5); Mean Corpuscular Hemoglobin 30.8 pg (28.0-33.3); Red Cell Distribution Width 13.6 % (11.5-14.5)
[2021-04-05 17:18] LABS: VBG HCO3 24 mEq/L (21-27); VBG PCO2 36 mmHg (41-51); VBG PH 7.43 pH Units (7.32-7.42); VBG PO2 32 mmHg (25-50)
[2021-04-05 17:18] LABS: Hematocrit 51.1 % (37.5-50.1); Hemoglobin 17.1 g/dL (12.9-16.9); Immature Granulocytes % 0.5 % (0-4); Immature Platelets 6.4 % (1.1-6.1); Lymphocytes # 0.9 K/mcL (0.6-4.6); Lymphocytes % 14.7 %; Mean Corpuscular Volume 92.1 fL (83.0-100.0); Monocytes # 0.4 K/mcL (0.0-1.3); Monocytes % 5.6 %; Neutrophils # 4.9 K/mcL (1.6-8.9); Platelet Count 121 K/mcL (140-400); Red Blood Count 5.55 M/mcL (4.19-5.50); White Blood Count 6.2 K/mcL (4.3-11.1)
[2021-04-05 18:03] LABS: BUN/Creatinine Ratio 19 (6-26); Blood Urea Nitrogen 21 mg/dL (8-23); Calcium 8.5 mg/dL (8.6-10.3); Carbon Dioxide 25 mEq/L (23-29); Chloride 97 mEq/L (98-107); Glucose 326 mg/dL (70-105); Osmolality,Calculated 294 (280-300); Potassium 3.8 mEq/L (3.5-5.1); Sodium 134 mEq/L (136-145); eGFR For African Americans > 60 (> 60); eGFR For Non-African Americans > 60 (> 60)
[2021-04-05 18:24] LABS: Troponin I 0.05 ng/mL (< 0.04)
[2021-04-05] MEDS ORDERED: 0.9 % Sodium Chloride 1,000 ML IV ONE (18:26)
[2021-04-05] MEDS ORDERED: Azithromycin 500 MG in 0.9 % Sodium Chloride 250 ML IVPB ONE (18:26)
[2021-04-05] MEDS ORDERED: Naloxone 0.4 MG/ML INJ IVP PRN (19:36)
[2021-04-05] MEDS ORDERED: Ondansetron ODT 4 MG TAB.RAPDIS SL PRN (19:36)
[2021-04-05] MEDS ORDERED: *HR* Dextrose 50 % in Water (Syg) 50 ML SYRINGE IVP PRN (20:53)
[2021-04-05] MEDS ORDERED: D5% in Water 1,000 ML IVC PRN (20:53)
[2021-04-05] MEDS ORDERED: Dextrose Gel 15 GM/37.5 ML TUBE PO PRN ×2 (20:53)
[2021-04-05] MEDS ORDERED: Saline Nasal Spray 44 ML BOTTLE NS PRN (21:33)
[2021-04-05] MEDS ORDERED: Carbidopa/Levodopa 25/100 TABLET PO ONE (21:39)
[2021-04-05] MEDS: Gabapentin 400 MG CAPSULE PO SCH (21:46)
[2021-04-05] MEDS: Insulin LISPRO 300 UNITS/3 ML VIAL SUBQ SCH ×2 (21:46→22:02)
[2021-04-05] MEDS: Apixaban 5 MG TABLET PO SCH (21:46)
[2021-04-05] MEDS ORDERED: Perflutren Lipid Microsphere 1.3 ML in 0.9 % Sodium Chloride 8.7 ML IVP PRN (21:49)
[2021-04-05 22:01] LABS: Phosphorous 1.9 mg/dL (2.7-4.5)
[2021-04-05] MEDS: predniSONE 20 MG TABLET PO SCH (22:51)
[2021-04-05] MEDS: Artificial Tears SOLN 15 ML BOTTLE BOTH EYES SCH (22:52)
[2021-04-05] MEDS: Ipratropium 1 PUFF INHALER IH SCH (23:27)
[2021-04-06] MEDS: Ipratropium 1 PUFF INHALER IH SCH ×6 (03:11→22:39)
[2021-04-06 06:30] LABS: Basophils % 0.2 %; Hemoglobin 15.8 g/dL (12.9-16.9); Immature Granulocytes % 0.5 % (0-4); Red Cell Distribution Width 13.6 % (11.5-14.5)
[2021-04-06 06:31] LABS: BUN/Creatinine Ratio 22 (6-26); Blood Urea Nitrogen 20 mg/dL (8-23); Calcium 7.8 mg/dL (8.6-10.3); Carbon Dioxide 20 mEq/L (23-29); Chloride 102 mEq/L (98-107); Chol/HDL Ratio 4.1 (0-4.9); Cholesterol 95 mg/dL (< 200); Glucose 356 mg/dL (70-105); HDL Cholesterol 23 mg/dL (40-59); LDL Cholesterol,Calculated 60 mg/dL (< 100); Osmolality,Calculated 295 (280-300); Potassium 3.9 mEq/L (3.5-5.1); Sodium 134 mEq/L (136-145); Triglycerides 62 mg/dL (< 150); eGFR For African Americans > 60 (> 60); eGFR For Non-African Americans > 60 (> 60)
[2021-04-06 06:33] LABS: Hematocrit 46.9 % (37.5-50.1); Immature Platelets 6.6 % (1.1-6.1); Lymphocytes # 0.8 K/mcL (0.6-4.6); Mean Corpuscular HGB Conc 33.7 g/dL (31.6-35.5); Mean Corpuscular Hemoglobin 31.3 pg (28.0-33.3); Mean Corpuscular Volume 93.1 fL (83.0-100.0); Mean Platelet Volume 10.5 fL (9.4-12.4); Monocytes # 0.3 K/mcL (0.0-1.3); Neutrophils # 5.3 K/mcL (1.6-8.9); Platelet Count 115 K/mcL (140-400); Red Blood Count 5.04 M/mcL (4.19-5.50); Segmented Neutrophils % 83.3 %; White Blood Count 6.3 K/mcL (4.3-11.1)
[2021-04-06] MEDS ORDERED: Carbidopa/Levodopa 25/100 TABLET PO SCH (08:00)
[2021-04-06] MEDS ORDERED: *HR* OxyCODONE/APAP 5/325 TABLET PO PRN (08:10)
[2021-04-06] MEDS: Gabapentin 400 MG CAPSULE PO SCH (08:13)
[2021-04-06] MEDS: Metoprolol XL (24 HR) Succ 50 MG TAB.ER.24H PO SCH (08:13)
[2021-04-06] MEDS: Azithromycin 250 MG TABLET PO SCH (08:13)
[2021-04-06] MEDS: Aspirin Enteric Coated 81 MG Tablet PO SCH (08:13)
[2021-04-06] MEDS: Cholecalciferol (D-3) 1,000 UNIT (25MCG) TABLET PO SCH (08:14)
[2021-04-06] MEDS: Pyridoxine (B-6) 50 MG TABLET PO SCH (08:14)
[2021-04-06] MEDS: Cyanocobalamin (B-12) 1,000 MCG TABLET PO SCH (08:14)
[2021-04-06] MEDS: amLODIPine 5 MG TABLET PO SCH (08:14)
[2021-04-06] MEDS: predniSONE 20 MG TABLET PO SCH (08:14)
[2021-04-06] MEDS: Chlorhexidine Rinse 15 ML MOUTHWASH MM SCH ×2 (08:14→20:37)
[2021-04-06] MEDS: Insulin LISPRO 300 UNITS/3 ML VIAL SUBQ SCH ×4 (08:15→20:45)
[2021-04-06] MEDS: Apixaban 5 MG TABLET PO SCH ×2 (08:22→20:37)
[2021-04-06] MEDS: Carbidopa/Levodopa 25/100 TABLET PO SCH ×2 (08:22→12:15)
[2021-04-06] MEDS: Gabapentin 300 MG CAPSULE PO SCH ×3 (08:35→20:37)
[2021-04-06] MEDS: Dexamethasone Sodium Phos/PF 10 MG/ML VIAL IVP SCH (12:14)
[2021-04-06] MEDS: Artificial Tears SOLN 15 ML BOTTLE BOTH EYES SCH (20:36)
[2021-04-07] MEDS: Ipratropium 1 PUFF INHALER IH SCH ×6 (03:42→23:03)
[2021-04-07 05:19] LABS: Basophils % 0.1 %; Platelet Count 123 K/mcL (140-400)
[2021-04-07 05:21] LABS: Hematocrit 48.5 % (37.5-50.1); Hemoglobin 15.9 g/dL (12.9-16.9); Immature Granulocytes % 0.6 % (0-4); Immature Platelets 7.2 % (1.1-6.1); Lymphocytes # 0.7 K/mcL (0.6-4.6); Lymphocytes % 6.7 %; Mean Corpuscular HGB Conc 32.8 g/dL (31.6-35.5); Mean Corpuscular Hemoglobin 30.3 pg (28.0-33.3); Mean Corpuscular Volume 92.6 fL (83.0-100.0); Mean Platelet Volume 11.2 fL (9.4-12.4); Monocytes # 0.2 K/mcL (0.0-1.3); Monocytes % 1.8 %; Red Blood Count 5.24 M/mcL (4.19-5.50); Red Cell Distribution Width 13.5 % (11.5-14.5); Segmented Neutrophils % 90.8 %; White Blood Count 10.9 K/mcL (4.3-11.1)
[2021-04-07 05:25] LABS: Neutrophils # 9.9 K/mcL (1.6-8.9)
[2021-04-07 05:40] LABS: BUN/Creatinine Ratio 24 (6-26); Blood Urea Nitrogen 25 mg/dL (8-23); Calcium 8.4 mg/dL (8.6-10.3); Carbon Dioxide 25 mEq/L (23-29); Chloride 100 mEq/L (98-107); Glucose 386 mg/dL (70-105); Magnesium 2.2 mg/dL (1.6-2.6); Osmolality,Calculated 300 (280-300); Phosphorous 2.9 mg/dL (2.7-4.5); Potassium 3.9 mEq/L (3.5-5.1); Sodium 135 mEq/L (136-145); eGFR For African Americans > 60 (> 60); eGFR For Non-African Americans > 60 (> 60)
[2021-04-07] MEDS: Carbidopa/Levodopa 25/100 TABLET PO SCH ×2 (08:29→12:20)
[2021-04-07] MEDS: amLODIPine 5 MG TABLET PO SCH (08:29)
[2021-04-07] MEDS: Metoprolol XL (24 HR) Succ 50 MG TAB.ER.24H PO SCH (08:29)
[2021-04-07] MEDS: Cholecalciferol (D-3) 1,000 UNIT (25MCG) TABLET PO SCH (08:29)
[2021-04-07] MEDS: Pyridoxine (B-6) 50 MG TABLET PO SCH (08:30)
[2021-04-07] MEDS: Cyanocobalamin (B-12) 1,000 MCG TABLET PO SCH (08:30)
[2021-04-07] MEDS: Aspirin Enteric Coated 81 MG Tablet PO SCH (08:30)
[2021-04-07] MEDS: Dexamethasone Sodium Phos/PF 10 MG/ML VIAL IVP SCH (08:30)
[2021-04-07] MEDS: Azithromycin 250 MG TABLET PO SCH (08:30)
[2021-04-07] MEDS: Apixaban 5 MG TABLET PO SCH ×2 (08:30→19:59)
[2021-04-07] MEDS: Gabapentin 300 MG CAPSULE PO SCH ×3 (08:30→19:59)
[2021-04-07] MEDS: Chlorhexidine Rinse 15 ML MOUTHWASH MM SCH ×2 (08:30→19:59)
[2021-04-07] MEDS: Insulin LISPRO 300 UNITS/3 ML VIAL SUBQ SCH ×4 (08:42→20:02)
[2021-04-07 10:29] LABS: Bacteria,Urine Few per hpf (None-Few); Bilirubin,Urine Negative (Negative); Blood,Urine Moderate (Negative); Clarity,Urine Clear (Clear); Color,Urine Yellow (Yellow); Glucose,Urine (UA) >=1000 mg/dL (Normal); Ketones,Urine Trace mg/dL (Negative); Leukocyte Esterase,Urine Negative (Negative); Mucus,Urine Few per lpf (None-Few); Nitrite,Urine Negative (Negative); PH,Urine 6.5 pH Units (5.0-8.0); Protein,Urine 100 mg/dL (Neg-Trace); RBC,Urine 0-3 per hpf (0-3); Specific Gravity,Urine > 1.030 (1.010-1.025); WBC,Urine 0-3 per hpf (0-3)
[2021-04-07] MEDS: Insulin DETEMIR 100 UNIT/ML X5UNITS SUBQ SCH ×2 (12:00→20:53)
[2021-04-07] MEDS: Artificial Tears SOLN 15 ML BOTTLE BOTH EYES SCH (20:00)
[2021-04-08 01:56] LABS: Basophils % 0.1 %; Hematocrit 46.4 % (37.5-50.1); Hemoglobin 15.5 g/dL (12.9-16.9); Immature Granulocytes % 1.1 % (0-4); Lymphocytes # 0.7 K/mcL (0.6-4.6); Mean Corpuscular HGB Conc 33.4 g/dL (31.6-35.5); Mean Corpuscular Hemoglobin 30.7 pg (28.0-33.3); Mean Corpuscular Volume 91.9 fL (83.0-100.0); Monocytes # 0.2 K/mcL (0.0-1.3); Monocytes % 1.8 %; Neutrophils # 10.4 K/mcL (1.6-8.9); Platelet Count 141 K/mcL (140-400); Red Blood Count 5.05 M/mcL (4.19-5.50); Red Cell Distribution Width 13.5 % (11.5-14.5); White Blood Count 11.4 K/mcL (4.3-11.1)
[2021-04-08 02:18] LABS: Alanine Aminotransferase 24 Units/L (7-52); Albumin 2.9 g/dL (3.5-5.7); Albumin/Globulin Ratio 0.9 (1.1-2.2); Alkaline Phosphatase 67 Units/L (34-104); Aspartate Amino Transferase 35 Units/L (13-39); BUN/Creatinine Ratio 26 (6-26); Bilirubin,Total 1.1 mg/dL (0.3-1.0); Blood Urea Nitrogen 24 mg/dL (8-23); C-Reactive Protein 144 mg/L (Less than 10); Calcium 8.1 mg/dL (8.6-10.3); Carbon Dioxide 26 mEq/L (23-29); Chloride 102 mEq/L (98-107); Globulin 3.2 g/dL (2.4-3.5); Glucose 280 mg/dL (70-105); Lactate Dehydrogenase 357 Units/L (140-271); Osmolality,Calculated 294 (280-300); Potassium 3.6 mEq/L (3.5-5.1); Sodium 135 mEq/L (136-145); Total Protein 6.1 g/dL (6.4-8.9); eGFR For African Americans > 60 (> 60); eGFR For Non-African Americans > 60 (> 60)
[2021-04-08 02:35] LABS: Ferritin 486 ng/mL (20-250)
[2021-04-08] MEDS: Ipratropium 1 PUFF INHALER IH SCH ×5 (03:23→20:26)
[2021-04-08] MEDS: Cyanocobalamin (B-12) 1,000 MCG TABLET PO SCH (07:30)
[2021-04-08] MEDS: Chlorhexidine Rinse 15 ML MOUTHWASH MM SCH ×2 (07:30→20:43)
[2021-04-08] MEDS: Insulin DETEMIR 100 UNIT/ML X5UNITS SUBQ SCH ×2 (07:30→20:44)
[2021-04-08] MEDS: Gabapentin 300 MG CAPSULE PO SCH ×3 (07:30→20:44)
[2021-04-08] MEDS: Carbidopa/Levodopa 25/100 TABLET PO SCH ×2 (07:31→11:50)
[2021-04-08] MEDS: Metoprolol XL (24 HR) Succ 50 MG TAB.ER.24H PO SCH (07:31)
[2021-04-08] MEDS: Pyridoxine (B-6) 50 MG TABLET PO SCH (07:31)
[2021-04-08] MEDS: Cholecalciferol (D-3) 1,000 UNIT (25MCG) TABLET PO SCH (07:31)
[2021-04-08] MEDS: Aspirin Enteric Coated 81 MG Tablet PO SCH (07:31)
[2021-04-08] MEDS: Azithromycin 250 MG TABLET PO SCH (07:31)
[2021-04-08] MEDS: Apixaban 5 MG TABLET PO SCH ×2 (07:31→20:43)
[2021-04-08] MEDS: amLODIPine 5 MG TABLET PO SCH (07:31)
[2021-04-08] MEDS: Dexamethasone Sodium Phos/PF 10 MG/ML VIAL IVP SCH (07:40)
[2021-04-08] MEDS: Insulin LISPRO 300 UNITS/3 ML VIAL SUBQ SCH ×4 (07:42→20:44)
[2021-04-08] MEDS ORDERED: Furosemide 20 MG/2 ML VIAL IVP ONE (08:48)
[2021-04-08] MEDS: Artificial Tears SOLN 15 ML BOTTLE BOTH EYES SCH (20:43)
[2021-04-09] MEDS: Ipratropium 1 PUFF INHALER IH SCH ×6 (00:22→21:03)
[2021-04-09 03:25] LABS: Basophils % 0.1 %; Hematocrit 45.8 % (37.5-50.1); Hemoglobin 15.6 g/dL (12.9-16.9); Immature Granulocytes % 0.6 % (0-4); Lymphocytes # 0.5 K/mcL (0.6-4.6); Lymphocytes % 6.6 %; Mean Corpuscular HGB Conc 34.1 g/dL (31.6-35.5); Mean Corpuscular Hemoglobin 31.3 pg (28.0-33.3); Mean Platelet Volume 11.3 fL (9.4-12.4); Monocytes # 0.3 K/mcL (0.0-1.3); Monocytes % 3.5 %; Neutrophils # 6.4 K/mcL (1.6-8.9); Platelet Count 148 K/mcL (140-400); Red Blood Count 4.98 M/mcL (4.19-5.50); Red Cell Distribution Width 13.5 % (11.5-14.5); Segmented Neutrophils % 89.2 %; White Blood Count 7.2 K/mcL (4.3-11.1)
[2021-04-09 03:45] LABS: BUN/Creatinine Ratio 30 (6-26); Blood Urea Nitrogen 29 mg/dL (8-23); Calcium 8.3 mg/dL (8.6-10.3); Carbon Dioxide 27 mEq/L (23-29); Chloride 102 mEq/L (98-107); Glucose 314 mg/dL (70-105); Osmolality,Calculated 302 (280-300); Potassium 3.8 mEq/L (3.5-5.1); Sodium 137 mEq/L (136-145); eGFR For African Americans > 60 (> 60); eGFR For Non-African Americans > 60 (> 60)
[2021-04-09] MEDS: Insulin LISPRO 300 UNITS/3 ML VIAL SUBQ SCH ×4 (08:19→20:59)
[2021-04-09] MEDS: Insulin DETEMIR 100 UNIT/ML X5UNITS SUBQ SCH ×2 (08:19→21:00)
[2021-04-09] MEDS: Dexamethasone Sodium Phos/PF 10 MG/ML VIAL IVP SCH (08:19)
[2021-04-09] MEDS: Chlorhexidine Rinse 15 ML MOUTHWASH MM SCH ×2 (08:19→20:59)
[2021-04-09] MEDS: Gabapentin 300 MG CAPSULE PO SCH ×3 (08:20→21:00)
[2021-04-09] MEDS: Azithromycin 250 MG TABLET PO SCH (08:20)
[2021-04-09] MEDS: Apixaban 5 MG TABLET PO SCH ×2 (08:20→20:59)
[2021-04-09] MEDS: amLODIPine 5 MG TABLET PO SCH (08:20)
[2021-04-09] MEDS: Metoprolol XL (24 HR) Succ 50 MG TAB.ER.24H PO SCH (08:20)
[2021-04-09] MEDS: Cholecalciferol (D-3) 1,000 UNIT (25MCG) TABLET PO SCH (08:20)
[2021-04-09] MEDS: Carbidopa/Levodopa 25/100 TABLET PO SCH ×2 (08:20→12:40)
[2021-04-09] MEDS: Pyridoxine (B-6) 50 MG TABLET PO SCH (08:20)
[2021-04-09] MEDS: Aspirin Enteric Coated 81 MG Tablet PO SCH (08:20)
[2021-04-09] MEDS: Cyanocobalamin (B-12) 1,000 MCG TABLET PO SCH (08:20)
[2021-04-09] MEDS: Furosemide 20 MG/2 ML VIAL IVP SCH (12:40)
[2021-04-09] MEDS: Artificial Tears SOLN 15 ML BOTTLE BOTH EYES SCH (20:59)
[2021-04-10] MEDS: Ipratropium 1 PUFF INHALER IH SCH ×7 (00:24→23:58)
[2021-04-10 02:25] LABS: Basophils % 0.2 %; Hematocrit 48.8 % (37.5-50.1); Hemoglobin 16.4 g/dL (12.9-16.9); Immature Granulocytes % 0.5 % (0-4); Lymphocytes # 0.5 K/mcL (0.6-4.6); Lymphocytes % 7.8 %; Mean Corpuscular HGB Conc 33.6 g/dL (31.6-35.5); Mean Corpuscular Hemoglobin 30.4 pg (28.0-33.3); Mean Corpuscular Volume 90.5 fL (83.0-100.0); Mean Platelet Volume 11.3 fL (9.4-12.4); Monocytes # 0.3 K/mcL (0.0-1.3); Monocytes % 4.6 %; Neutrophils # 5.7 K/mcL (1.6-8.9); Platelet Count 162 K/mcL (140-400); Red Blood Count 5.39 M/mcL (4.19-5.50); Red Cell Distribution Width 13.5 % (11.5-14.5); Segmented Neutrophils % 86.9 %; White Blood Count 6.5 K/mcL (4.3-11.1)
[2021-04-10 02:51] LABS: Alanine Aminotransferase 27 Units/L (7-52); Albumin 2.9 g/dL (3.5-5.7); Albumin/Globulin Ratio 0.9 (1.1-2.2); Alkaline Phosphatase 71 Units/L (34-104); Aspartate Amino Transferase 37 Units/L (13-39); BUN/Creatinine Ratio 34 (6-26); Bilirubin,Total 1.1 mg/dL (0.3-1.0); Blood Urea Nitrogen 29 mg/dL (8-23); Calcium 8.2 mg/dL (8.6-10.3); Carbon Dioxide 26 mEq/L (23-29); Chloride 102 mEq/L (98-107); Globulin 3.3 g/dL (2.4-3.5); Glucose 355 mg/dL (70-105); Osmolality,Calculated 306 (280-300); Potassium 3.8 mEq/L (3.5-5.1); Sodium 138 mEq/L (136-145); Total Protein 6.2 g/dL (6.4-8.9); eGFR For African Americans > 60 (> 60); eGFR For Non-African Americans > 60 (> 60)
[2021-04-10] MEDS: Chlorhexidine Rinse 15 ML MOUTHWASH MM SCH ×2 (08:03→19:56)
[2021-04-10] MEDS: Metoprolol XL (24 HR) Succ 50 MG TAB.ER.24H PO SCH (08:03)
[2021-04-10] MEDS: Dexamethasone Sodium Phos/PF 10 MG/ML VIAL IVP SCH (08:03)
[2021-04-10] MEDS: Gabapentin 300 MG CAPSULE PO SCH ×3 (08:04→19:56)
[2021-04-10] MEDS: Aspirin Enteric Coated 81 MG Tablet PO SCH (08:04)
[2021-04-10] MEDS: Apixaban 5 MG TABLET PO SCH ×2 (08:04→19:56)
[2021-04-10] MEDS: amLODIPine 5 MG TABLET PO SCH (08:04)
[2021-04-10] MEDS: Pyridoxine (B-6) 50 MG TABLET PO SCH (08:04)
[2021-04-10] MEDS: Cholecalciferol (D-3) 1,000 UNIT (25MCG) TABLET PO SCH (08:04)
[2021-04-10] MEDS: Cyanocobalamin (B-12) 1,000 MCG TABLET PO SCH (08:04)
[2021-04-10] MEDS: Carbidopa/Levodopa 25/100 TABLET PO SCH ×2 (08:04→11:54)
[2021-04-10] MEDS: Furosemide 20 MG/2 ML VIAL IVP SCH (08:04)
[2021-04-10] MEDS: Insulin LISPRO 300 UNITS/3 ML VIAL SUBQ SCH ×4 (08:10→20:22)
[2021-04-10] MEDS: Insulin DETEMIR 100 UNIT/ML X5UNITS SUBQ SCH ×2 (08:11→20:22)
[2021-04-10] MEDS: Artificial Tears SOLN 15 ML BOTTLE BOTH EYES SCH (19:56)
[2021-04-11] MEDS: Ipratropium 1 PUFF INHALER IH SCH ×5 (03:40→20:05)
[2021-04-11 06:13] LABS: Basophils % 0.1 %; Hematocrit 52.2 % (37.5-50.1); Immature Granulocytes % 0.6 % (0-4); Lymphocytes # 0.7 K/mcL (0.6-4.6); Lymphocytes % 10.1 %; Mean Corpuscular HGB Conc 32.6 g/dL (31.6-35.5); Mean Corpuscular Hemoglobin 30.2 pg (28.0-33.3); Mean Corpuscular Volume 92.9 fL (83.0-100.0); Mean Platelet Volume 11.1 fL (9.4-12.4); Monocytes # 0.3 K/mcL (0.0-1.3); Monocytes % 4.7 %; Neutrophils # 6.1 K/mcL (1.6-8.9); Platelet Count 192 K/mcL (140-400); Red Blood Count 5.62 M/mcL (4.19-5.50); Red Cell Distribution Width 13.3 % (11.5-14.5); Segmented Neutrophils % 84.5 %; White Blood Count 7.2 K/mcL (4.3-11.1)
[2021-04-11 06:40] LABS: Alanine Aminotransferase 51 Units/L (7-52); Albumin 3.2 g/dL (3.5-5.7); Alkaline Phosphatase 81 Units/L (34-104); Aspartate Amino Transferase 52 Units/L (13-39); BUN/Creatinine Ratio 28 (6-26); Bilirubin,Total 1.3 mg/dL (0.3-1.0); Blood Urea Nitrogen 31 mg/dL (8-23); Calcium 8.3 mg/dL (8.6-10.3); Carbon Dioxide 29 mEq/L (23-29); Chloride 101 mEq/L (98-107); Globulin 3.2 g/dL (2.4-3.5); Glucose 201 mg/dL (70-105); Osmolality,Calculated 302 (280-300); Potassium 3.6 mEq/L (3.5-5.1); Sodium 140 mEq/L (136-145); Total Protein 6.4 g/dL (6.4-8.9); eGFR For African Americans > 60 (> 60); eGFR For Non-African Americans > 60 (> 60)
[2021-04-11] MEDS: Chlorhexidine Rinse 15 ML MOUTHWASH MM SCH ×2 (08:17→21:49)
[2021-04-11] MEDS: Insulin LISPRO 300 UNITS/3 ML VIAL SUBQ SCH ×4 (08:17→20:51)
[2021-04-11] MEDS: Dexamethasone Sodium Phos/PF 10 MG/ML VIAL IVP SCH (08:18)
[2021-04-11] MEDS: Metoprolol XL (24 HR) Succ 50 MG TAB.ER.24H PO SCH (08:18)
[2021-04-11] MEDS: Aspirin Enteric Coated 81 MG Tablet PO SCH (08:18)
[2021-04-11] MEDS: Furosemide 20 MG/2 ML VIAL IVP SCH (08:18)
[2021-04-11] MEDS: Cyanocobalamin (B-12) 1,000 MCG TABLET PO SCH (08:19)
[2021-04-11] MEDS: Cholecalciferol (D-3) 1,000 UNIT (25MCG) TABLET PO SCH (08:19)
[2021-04-11] MEDS: Gabapentin 300 MG CAPSULE PO SCH ×3 (08:19→21:48)
[2021-04-11] MEDS: amLODIPine 5 MG TABLET PO SCH (08:19)
[2021-04-11] MEDS: Pyridoxine (B-6) 50 MG TABLET PO SCH (08:19)
[2021-04-11] MEDS: Apixaban 5 MG TABLET PO SCH ×2 (08:19→21:48)
[2021-04-11] MEDS: Carbidopa/Levodopa 25/100 TABLET PO SCH ×2 (08:19→12:19)
[2021-04-11] MEDS: Insulin DETEMIR 100 UNIT/ML X5UNITS SUBQ SCH ×2 (08:23→21:49)
[2021-04-11] MEDS: Artificial Tears SOLN 15 ML BOTTLE BOTH EYES SCH (21:49)
[2021-04-12] MEDS: Ipratropium 1 PUFF INHALER IH SCH ×7 (00:20→23:06)
[2021-04-12 07:00] LABS: Basophils % 0.2 %; Eosinophils % 0.1 %; Hematocrit 49.9 % (37.5-50.1); Hemoglobin 16.7 g/dL (12.9-16.9); Immature Granulocytes % 0.6 % (0-4); Lymphocytes # 0.7 K/mcL (0.6-4.6); Lymphocytes % 8.7 %; Mean Corpuscular HGB Conc 33.5 g/dL (31.6-35.5); Mean Corpuscular Hemoglobin 30.5 pg (28.0-33.3); Mean Corpuscular Volume 91.2 fL (83.0-100.0); Mean Platelet Volume 10.9 fL (9.4-12.4); Monocytes # 0.4 K/mcL (0.0-1.3); Monocytes % 4.9 %; Platelet Count 195 K/mcL (140-400); Red Blood Count 5.47 M/mcL (4.19-5.50); Red Cell Distribution Width 13.2 % (11.5-14.5); Segmented Neutrophils % 85.5 %; White Blood Count 8.2 K/mcL (4.3-11.1)
[2021-04-12 07:23] LABS: Alanine Aminotransferase 65 Units/L (7-52); Albumin 3.1 g/dL (3.5-5.7); Albumin/Globulin Ratio 1.1 (1.1-2.2); Alkaline Phosphatase 75 Units/L (34-104); Aspartate Amino Transferase 62 Units/L (13-39); BUN/Creatinine Ratio 33 (6-26); Bilirubin,Total 1.7 mg/dL (0.3-1.0); Blood Urea Nitrogen 35 mg/dL (8-23); Calcium 8.1 mg/dL (8.6-10.3); Carbon Dioxide 29 mEq/L (23-29); Chloride 103 mEq/L (98-107); Globulin 2.9 g/dL (2.4-3.5); Glucose 72 mg/dL (70-105); Lactate Dehydrogenase 422 Units/L (140-271); Osmolality,Calculated 301 (280-300); Potassium 3.3 mEq/L (3.5-5.1); Sodium 142 mEq/L (136-145); eGFR For African Americans > 60 (> 60); eGFR For Non-African Americans > 60 (> 60)
[2021-04-12 07:38] LABS: Ferritin 432 ng/mL (20-250)
[2021-04-12 09:24] LABS: C-Reactive Protein 14 mg/L (Less than 10)
[2021-04-12] MEDS: Apixaban 5 MG TABLET PO SCH ×2 (09:35→21:16)
[2021-04-12] MEDS: Gabapentin 300 MG CAPSULE PO SCH ×3 (09:35→21:16)
[2021-04-12] MEDS: amLODIPine 5 MG TABLET PO SCH (09:35)
[2021-04-12] MEDS: Insulin LISPRO 300 UNITS/3 ML VIAL SUBQ SCH ×5 (09:35→21:15)
[2021-04-12] MEDS: Metoprolol XL (24 HR) Succ 50 MG TAB.ER.24H PO SCH (09:35)
[2021-04-12] MEDS: Aspirin Enteric Coated 81 MG Tablet PO SCH (09:35)
[2021-04-12] MEDS: Carbidopa/Levodopa 25/100 TABLET PO SCH ×2 (09:36→09:44)
[2021-04-12] MEDS: Cholecalciferol (D-3) 1,000 UNIT (25MCG) TABLET PO SCH (09:36)
[2021-04-12] MEDS: Cyanocobalamin (B-12) 1,000 MCG TABLET PO SCH (09:36)
[2021-04-12] MEDS: Insulin DETEMIR 100 UNIT/ML X5UNITS SUBQ SCH (09:36)
[2021-04-12] MEDS: Dexamethasone Sodium Phos/PF 10 MG/ML VIAL IVP SCH (09:37)
[2021-04-12] MEDS: Chlorhexidine Rinse 15 ML MOUTHWASH MM SCH ×2 (09:37→21:15)
[2021-04-12] MEDS: Pyridoxine (B-6) 50 MG TABLET PO SCH (09:44)
[2021-04-12] MEDS: Furosemide 20 MG/2 ML VIAL IVP SCH (09:44)
[2021-04-12] MEDS: Artificial Tears SOLN 15 ML BOTTLE BOTH EYES SCH (21:16)
[2021-04-13] MEDS: Ipratropium 1 PUFF INHALER IH SCH ×6 (03:14→23:47)
[2021-04-13 05:58] LABS: White Blood Count 8.4 K/mcL (4.3-11.1)
[2021-04-13 05:59] LABS: Basophils % 0.1 %; Hematocrit 49.8 % (37.5-50.1); Hemoglobin 16.9 g/dL (12.9-16.9); Immature Granulocytes % 0.6 % (0-4); Lymphocytes # 0.6 K/mcL (0.6-4.6); Lymphocytes % 7.2 %; Mean Corpuscular HGB Conc 33.9 g/dL (31.6-35.5); Mean Corpuscular Hemoglobin 31.3 pg (28.0-33.3); Mean Corpuscular Volume 92.2 fL (83.0-100.0); Mean Platelet Volume 11.4 fL (9.4-12.4); Monocytes # 0.3 K/mcL (0.0-1.3); Monocytes % 3.9 %; Neutrophils # 7.4 K/mcL (1.6-8.9); Platelet Count 175 K/mcL (140-400); Red Cell Distribution Width 13.2 % (11.5-14.5); Segmented Neutrophils % 88.2 %
[2021-04-13 06:28] LABS: Alanine Aminotransferase 74 Units/L (7-52); Alkaline Phosphatase 81 Units/L (34-104); Aspartate Amino Transferase 55 Units/L (13-39); BUN/Creatinine Ratio 31 (6-26); Bilirubin,Total 1.8 mg/dL (0.3-1.0); Blood Urea Nitrogen 35 mg/dL (8-23); Calcium 7.9 mg/dL (8.6-10.3); Carbon Dioxide 30 mEq/L (23-29); Chloride 100 mEq/L (98-107); Glucose 187 mg/dL (70-105); Osmolality,Calculated 299 (280-300); Sodium 138 mEq/L (136-145); eGFR For African Americans > 60 (> 60); eGFR For Non-African Americans > 60 (> 60)
[2021-04-13] MEDS: Cholecalciferol (D-3) 1,000 UNIT (25MCG) TABLET PO SCH (10:12)
[2021-04-13] MEDS: Insulin LISPRO 300 UNITS/3 ML VIAL SUBQ SCH ×3 (10:12→20:33)
[2021-04-13] MEDS: Aspirin Enteric Coated 81 MG Tablet PO SCH (10:12)
[2021-04-13] MEDS: Gabapentin 300 MG CAPSULE PO SCH ×3 (10:12→20:32)
[2021-04-13] MEDS: Metoprolol XL (24 HR) Succ 50 MG TAB.ER.24H PO SCH (10:12)
[2021-04-13] MEDS: Cyanocobalamin (B-12) 1,000 MCG TABLET PO SCH (10:12)
[2021-04-13] MEDS: Apixaban 5 MG TABLET PO SCH ×2 (10:13→20:32)
[2021-04-13] MEDS: Chlorhexidine Rinse 15 ML MOUTHWASH MM SCH ×2 (10:13→20:32)
[2021-04-13] MEDS: Carbidopa/Levodopa 25/100 TABLET PO SCH ×2 (10:13→12:57)
[2021-04-13] MEDS: Furosemide 20 MG/2 ML VIAL IVP SCH (10:14)
[2021-04-13] MEDS: Pyridoxine (B-6) 50 MG TABLET PO SCH (10:14)
[2021-04-13] MEDS: Insulin DETEMIR 100 UNIT/ML X5UNITS SUBQ SCH (10:14)
[2021-04-13] MEDS: Artificial Tears SOLN 15 ML BOTTLE BOTH EYES SCH (20:32)
[2021-04-14] MEDS: Ipratropium 1 PUFF INHALER IH SCH ×5 (04:01→20:20)
[2021-04-14 05:35] LABS: Basophils % 0.1 %; Eosinophils # 0.1 K/mcL (0.0-0.6); Eosinophils % 0.9 %; Hematocrit 53.9 % (37.5-50.1); Hemoglobin 17.7 g/dL (12.9-16.9); Immature Granulocytes % 0.5 % (0-4); Lymphocytes # 0.7 K/mcL (0.6-4.6); Lymphocytes % 7.3 %; Mean Corpuscular HGB Conc 32.8 g/dL (31.6-35.5); Mean Corpuscular Hemoglobin 30.3 pg (28.0-33.3); Mean Corpuscular Volume 92.3 fL (83.0-100.0); Mean Platelet Volume 11.3 fL (9.4-12.4); Monocytes # 0.2 K/mcL (0.0-1.3); Monocytes % 1.8 %; Neutrophils # 7.9 K/mcL (1.6-8.9); Platelet Count 169 K/mcL (140-400); Red Blood Count 5.84 M/mcL (4.19-5.50); Red Cell Distribution Width 13.2 % (11.5-14.5); Segmented Neutrophils % 89.4 %; White Blood Count 8.9 K/mcL (4.3-11.1)
[2021-04-14 05:54] LABS: Alanine Aminotransferase 75 Units/L (7-52); Albumin 3.1 g/dL (3.5-5.7); Albumin/Globulin Ratio 1.1 (1.1-2.2); Alkaline Phosphatase 89 Units/L (34-104); Aspartate Amino Transferase 51 Units/L (13-39); BUN/Creatinine Ratio 28 (6-26); Bilirubin,Total 2.2 mg/dL (0.3-1.0); Blood Urea Nitrogen 30 mg/dL (8-23); C-Reactive Protein 6 mg/L (Less than 10); Calcium 8.2 mg/dL (8.6-10.3); Carbon Dioxide 30 mEq/L (23-29); Chloride 100 mEq/L (98-107); Globulin 2.8 g/dL (2.4-3.5); Glucose 145 mg/dL (70-105); Lactate Dehydrogenase 475 Units/L (140-271); Osmolality,Calculated 295 (280-300); Potassium 3.8 mEq/L (3.5-5.1); Sodium 138 mEq/L (136-145); Total Protein 5.9 g/dL (6.4-8.9); eGFR For African Americans > 60 (> 60); eGFR For Non-African Americans > 60 (> 60)
[2021-04-14 06:09] LABS: Ferritin 565 ng/mL (20-250)
[2021-04-14] MEDS: Furosemide 20 MG/2 ML VIAL IVP SCH (09:20)
[2021-04-14] MEDS: Gabapentin 300 MG CAPSULE PO SCH ×3 (09:20→20:41)
[2021-04-14] MEDS: Cholecalciferol (D-3) 1,000 UNIT (25MCG) TABLET PO SCH (09:20)
[2021-04-14] MEDS: Chlorhexidine Rinse 15 ML MOUTHWASH MM SCH ×2 (09:21→20:41)
[2021-04-14] MEDS: Pyridoxine (B-6) 50 MG TABLET PO SCH (09:21)
[2021-04-14] MEDS: Apixaban 5 MG TABLET PO SCH ×2 (09:21→20:41)
[2021-04-14] MEDS: Aspirin Enteric Coated 81 MG Tablet PO SCH (09:21)
[2021-04-14] MEDS: Metoprolol XL (24 HR) Succ 50 MG TAB.ER.24H PO SCH (09:21)
[2021-04-14] MEDS: Carbidopa/Levodopa 25/100 TABLET PO SCH ×2 (09:22→13:55)
[2021-04-14] MEDS: Cyanocobalamin (B-12) 1,000 MCG TABLET PO SCH (09:22)
[2021-04-14] MEDS: Insulin DETEMIR 100 UNIT/ML X5UNITS SUBQ SCH (09:29)
[2021-04-14] MEDS: Insulin LISPRO 300 UNITS/3 ML VIAL SUBQ SCH ×5 (09:29→20:41)
[2021-04-14] MEDS ORDERED: Isovue-370 500 ML BOTTLE IVP ONE (11:53)
[2021-04-14] MEDS: Artificial Tears SOLN 15 ML BOTTLE BOTH EYES SCH (20:42)
[2021-04-15] MEDS: Ipratropium 1 PUFF INHALER IH SCH ×7 (00:07→23:51)
[2021-04-15 07:40] LABS: Basophils % 0.1 %; Eosinophils # 0.2 K/mcL (0.0-0.6); Hematocrit 52.4 % (37.5-50.1); Hemoglobin 17.8 g/dL (12.9-16.9); Immature Granulocytes % 0.4 % (0-4); Lymphocytes # 0.7 K/mcL (0.6-4.6); Lymphocytes % 6.7 %; Mean Corpuscular Volume 91.3 fL (83.0-100.0); Mean Platelet Volume 11.3 fL (9.4-12.4); Monocytes # 0.2 K/mcL (0.0-1.3); Monocytes % 1.7 %; Neutrophils # 9.4 K/mcL (1.6-8.9); Platelet Count 190 K/mcL (140-400); Red Blood Count 5.74 M/mcL (4.19-5.50); Red Cell Distribution Width 13.2 % (11.5-14.5); Segmented Neutrophils % 89.1 %; White Blood Count 10.5 K/mcL (4.3-11.1)
[2021-04-15] MEDS: Furosemide 20 MG/2 ML VIAL IVP SCH (08:27)
[2021-04-15] MEDS: Piperacillin/Tazobactam 3.375 GM in 0.9 % Sodium Chloride Mini Bag 100 ML IVPB SCH ×2 (08:28→15:28)
[2021-04-15 08:29] LABS: Alanine Aminotransferase 73 Units/L (7-52); Albumin 3.2 g/dL (3.5-5.7); Albumin/Globulin Ratio 1.2 (1.1-2.2); Alkaline Phosphatase 102 Units/L (34-104); Aspartate Amino Transferase 42 Units/L (13-39); BUN/Creatinine Ratio 30 (6-26); Bilirubin,Direct 0.5 mg/dL (0.0-0.2); Bilirubin,Indirect 1.8 mg/dL (0.0-1.0); Bilirubin,Total 2.3 mg/dL (0.3-1.0); Blood Urea Nitrogen 34 mg/dL (8-23); Calcium 8.2 mg/dL (8.6-10.3); Carbon Dioxide 30 mEq/L (23-29); Chloride 98 mEq/L (98-107); Globulin 2.6 g/dL (2.4-3.5); Glucose 158 mg/dL (70-105); Osmolality,Calculated 295 (280-300); Potassium 3.7 mEq/L (3.5-5.1); Sodium 137 mEq/L (136-145); Total Protein 5.8 g/dL (6.4-8.9); eGFR For African Americans > 60 (> 60); eGFR For Non-African Americans > 60 (> 60)
[2021-04-15] MEDS: Chlorhexidine Rinse 15 ML MOUTHWASH MM SCH ×2 (08:29→21:18)
[2021-04-15] MEDS: Cyanocobalamin (B-12) 1,000 MCG TABLET PO SCH (08:30)
[2021-04-15] MEDS: Aspirin Enteric Coated 81 MG Tablet PO SCH (08:30)
[2021-04-15] MEDS: Cholecalciferol (D-3) 1,000 UNIT (25MCG) TABLET PO SCH (08:30)
[2021-04-15] MEDS: Gabapentin 300 MG CAPSULE PO SCH ×3 (08:30→21:17)
[2021-04-15] MEDS: Metoprolol XL (24 HR) Succ 50 MG TAB.ER.24H PO SCH (08:30)
[2021-04-15] MEDS: Apixaban 5 MG TABLET PO SCH ×2 (08:30→21:18)
[2021-04-15] MEDS: Carbidopa/Levodopa 25/100 TABLET PO SCH ×2 (08:33→12:06)
[2021-04-15] MEDS: Pyridoxine (B-6) 50 MG TABLET PO SCH (08:34)
[2021-04-15] MEDS: Insulin LISPRO 300 UNITS/3 ML VIAL SUBQ SCH ×4 (08:35→21:18)
[2021-04-15] MEDS: Vancomycin 1,750 MG/517.5 ML IV.SOLN IVPB SCH ×2 (12:07→22:49)
[2021-04-15] MEDS: Insulin DETEMIR 100 UNIT/ML X5UNITS SUBQ SCH (12:07)
[2021-04-15] MEDS: Artificial Tears SOLN 15 ML BOTTLE BOTH EYES SCH (21:17)
[2021-04-16] MEDS: Piperacillin/Tazobactam 3.375 GM in 0.9 % Sodium Chloride Mini Bag 100 ML IVPB SCH ×4 (00:53→23:47)
[2021-04-16] MEDS: Ipratropium 1 PUFF INHALER IH SCH ×5 (03:32→20:35)
[2021-04-16 05:29] LABS: Hematocrit 50.2 % (37.5-50.1); Hemoglobin 17.1 g/dL (12.9-16.9); Mean Corpuscular HGB Conc 34.1 g/dL (31.6-35.5); Mean Corpuscular Hemoglobin 30.9 pg (28.0-33.3); Mean Corpuscular Volume 90.8 fL (83.0-100.0); Mean Platelet Volume 11.5 fL (9.4-12.4); Platelet Count 148 K/mcL (140-400); Red Blood Count 5.53 M/mcL (4.19-5.50); White Blood Count 10.7 K/mcL (4.3-11.1)
[2021-04-16 05:40] LABS: INR 1.8; Prothrombin Time 20.1 Seconds (9.4-12.1)
[2021-04-16 06:18] LABS: Alanine Aminotransferase 58 Units/L (7-52); Albumin 2.9 g/dL (3.5-5.7); Albumin/Globulin Ratio 1.1 (1.1-2.2); Alkaline Phosphatase 101 Units/L (34-104); Aspartate Amino Transferase 34 Units/L (13-39); BUN/Creatinine Ratio 27 (6-26); Bilirubin,Direct 0.5 mg/dL (0.0-0.2); Bilirubin,Indirect 1.5 mg/dL (0.0-1.0); Blood Urea Nitrogen 29 mg/dL (8-23); Calcium 7.8 mg/dL (8.6-10.3); Carbon Dioxide 29 mEq/L (23-29); Chloride 101 mEq/L (98-107); Globulin 2.6 g/dL (2.4-3.5); Glucose 188 mg/dL (70-105); Magnesium 2.1 mg/dL (1.6-2.6); Osmolality,Calculated 293 (280-300); Potassium 3.6 mEq/L (3.5-5.1); Sodium 136 mEq/L (136-145); Total Protein 5.5 g/dL (6.4-8.9); eGFR For African Americans > 60 (> 60); eGFR For Non-African Americans > 60 (> 60)
[2021-04-16] MEDS: Cyanocobalamin (B-12) 1,000 MCG TABLET PO SCH (07:54)
[2021-04-16] MEDS: Gabapentin 300 MG CAPSULE PO SCH ×3 (07:54→20:18)
[2021-04-16] MEDS: Pyridoxine (B-6) 50 MG TABLET PO SCH (07:54)
[2021-04-16] MEDS: Aspirin Enteric Coated 81 MG Tablet PO SCH (07:55)
[2021-04-16] MEDS: Apixaban 5 MG TABLET PO SCH ×2 (07:55→20:18)
[2021-04-16] MEDS: Cholecalciferol (D-3) 1,000 UNIT (25MCG) TABLET PO SCH (07:56)
[2021-04-16] MEDS: Carbidopa/Levodopa 25/100 TABLET PO SCH ×2 (07:56→12:19)
[2021-04-16] MEDS: Furosemide 20 MG/2 ML VIAL IVP SCH (07:56)
[2021-04-16] MEDS: Metoprolol XL (24 HR) Succ 50 MG TAB.ER.24H PO SCH (07:57)
[2021-04-16] MEDS: Insulin LISPRO 300 UNITS/3 ML VIAL SUBQ SCH ×4 (07:57→20:17)
[2021-04-16] MEDS: Chlorhexidine Rinse 15 ML MOUTHWASH MM SCH ×2 (07:58→20:17)
[2021-04-16] MEDS: Insulin DETEMIR 100 UNIT/ML X5UNITS SUBQ SCH (10:22)
[2021-04-16] MEDS: Artificial Tears SOLN 15 ML BOTTLE BOTH EYES SCH (22:31)
[2021-04-17] MEDS: Ipratropium 1 PUFF INHALER IH SCH ×6 (00:28→20:00)
[2021-04-17] MEDS ORDERED: Saline Nasal Spray 44 ML BOTTLE NS ONE (06:05)
[2021-04-17] MEDS: Carbidopa/Levodopa 25/100 TABLET PO SCH ×2 (08:25→12:17)
[2021-04-17] MEDS: Cholecalciferol (D-3) 1,000 UNIT (25MCG) TABLET PO SCH (08:25)
[2021-04-17] MEDS: Gabapentin 300 MG CAPSULE PO SCH ×3 (08:25→22:44)
[2021-04-17] MEDS: Aspirin Enteric Coated 81 MG Tablet PO SCH (08:25)
[2021-04-17] MEDS: Metoprolol XL (24 HR) Succ 50 MG TAB.ER.24H PO SCH (08:25)
[2021-04-17] MEDS: Cyanocobalamin (B-12) 1,000 MCG TABLET PO SCH (08:25)
[2021-04-17] MEDS: Pyridoxine (B-6) 50 MG TABLET PO SCH (08:25)
[2021-04-17] MEDS: Furosemide 20 MG/2 ML VIAL IVP SCH (08:26)
[2021-04-17] MEDS: Piperacillin/Tazobactam 3.375 GM in 0.9 % Sodium Chloride Mini Bag 100 ML IVPB SCH ×2 (08:26→17:06)
[2021-04-17] MEDS: Chlorhexidine Rinse 15 ML MOUTHWASH MM SCH ×2 (08:27→22:49)
[2021-04-17] MEDS: Insulin DETEMIR 100 UNIT/ML X5UNITS SUBQ SCH (08:27)
[2021-04-17] MEDS: Insulin LISPRO 300 UNITS/3 ML VIAL SUBQ SCH ×4 (08:28→22:53)
[2021-04-17] MEDS: Apixaban 5 MG TABLET PO SCH ×2 (08:50→22:49)
[2021-04-17] MEDS: Saline Nasal Spray 44 ML BOTTLE NS PRN (17:07)
[2021-04-17] MEDS: Benzonatate 100 MG CAPSULE PO PRN (22:44)
[2021-04-17] MEDS: Melatonin 3 MG TABLET PO PRN (22:44)
[2021-04-17] MEDS: Artificial Tears SOLN 15 ML BOTTLE BOTH EYES SCH (22:53)
[2021-04-18] MEDS: Ipratropium 1 PUFF INHALER IH SCH ×7 (00:08→23:58)
[2021-04-18] MEDS: Piperacillin/Tazobactam 3.375 GM in 0.9 % Sodium Chloride Mini Bag 100 ML IVPB SCH ×4 (01:12→21:29)
[2021-04-18 06:56] LABS: Hematocrit 50.8 % (37.5-50.1); Hemoglobin 16.6 g/dL (12.9-16.9); Immature Platelets 10.6 % (1.1-6.1); Mean Corpuscular HGB Conc 32.7 g/dL (31.6-35.5); Mean Corpuscular Hemoglobin 30.4 pg (28.0-33.3); Mean Platelet Volume 11.6 fL (9.4-12.4); Red Blood Count 5.46 M/mcL (4.19-5.50); Red Cell Distribution Width 13.4 % (11.5-14.5); White Blood Count 12.7 K/mcL (4.3-11.1)
[2021-04-18 07:21] LABS: BUN/Creatinine Ratio 24 (6-26); Blood Urea Nitrogen 29 mg/dL (8-23); Calcium 8.2 mg/dL (8.6-10.3); Carbon Dioxide 33 mEq/L (23-29); Chloride 99 mEq/L (98-107); Glucose 106 mg/dL (70-105); Lactate Dehydrogenase 442 Units/L (140-271); Osmolality,Calculated 292 (280-300); Potassium 3.7 mEq/L (3.5-5.1); Sodium 138 mEq/L (136-145); eGFR For African Americans > 60 (> 60); eGFR For Non-African Americans 59 (> 60)
[2021-04-18] MEDS: Cholecalciferol (D-3) 1,000 UNIT (25MCG) TABLET PO SCH (10:27)
[2021-04-18] MEDS: Gabapentin 300 MG CAPSULE PO SCH ×3 (10:27→21:28)
[2021-04-18] MEDS: Carbidopa/Levodopa 25/100 TABLET PO SCH ×2 (10:27→12:23)
[2021-04-18] MEDS: Chlorhexidine Rinse 15 ML MOUTHWASH MM SCH ×2 (10:27→21:29)
[2021-04-18] MEDS: Pyridoxine (B-6) 50 MG TABLET PO SCH (10:27)
[2021-04-18] MEDS: Metoprolol XL (24 HR) Succ 50 MG TAB.ER.24H PO SCH (10:27)
[2021-04-18 10:28] LABS: C-Reactive Protein 7 mg/L (Less than 10); Ferritin 610 ng/mL (20-250)
[2021-04-18] MEDS: Apixaban 5 MG TABLET PO SCH ×2 (10:28→21:28)
[2021-04-18] MEDS: Cyanocobalamin (B-12) 1,000 MCG TABLET PO SCH (10:28)
[2021-04-18] MEDS: Aspirin Enteric Coated 81 MG Tablet PO SCH (10:28)
[2021-04-18] MEDS: Furosemide 20 MG/2 ML VIAL IVP SCH (10:29)
[2021-04-18] MEDS: Insulin DETEMIR 100 UNIT/ML X5UNITS SUBQ SCH (10:30)
[2021-04-18] MEDS: Insulin LISPRO 300 UNITS/3 ML VIAL SUBQ SCH ×4 (10:57→21:29)
[2021-04-18] MEDS: Artificial Tears SOLN 15 ML BOTTLE BOTH EYES SCH (21:29)
[2021-04-19] MEDS: Ipratropium 1 PUFF INHALER IH SCH ×6 (04:23→23:12)
[2021-04-19] MEDS: Piperacillin/Tazobactam 3.375 GM in 0.9 % Sodium Chloride Mini Bag 100 ML IVPB SCH ×3 (06:08→21:30)
[2021-04-19] MEDS: Insulin LISPRO 300 UNITS/3 ML VIAL SUBQ SCH ×4 (10:16→21:21)
[2021-04-19] MEDS: Cholecalciferol (D-3) 1,000 UNIT (25MCG) TABLET PO SCH (10:21)
[2021-04-19] MEDS: Pyridoxine (B-6) 50 MG TABLET PO SCH (10:21)
[2021-04-19] MEDS: Metoprolol XL (24 HR) Succ 50 MG TAB.ER.24H PO SCH (10:21)
[2021-04-19] MEDS: Chlorhexidine Rinse 15 ML MOUTHWASH MM SCH ×2 (10:21→21:20)
[2021-04-19] MEDS: Cyanocobalamin (B-12) 1,000 MCG TABLET PO SCH (10:21)
[2021-04-19] MEDS: Aspirin Enteric Coated 81 MG Tablet PO SCH (10:21)
[2021-04-19] MEDS: Carbidopa/Levodopa 25/100 TABLET PO SCH ×2 (10:21→14:14)
[2021-04-19] MEDS: Insulin DETEMIR 100 UNIT/ML X5UNITS SUBQ SCH (10:22)
[2021-04-19] MEDS: Gabapentin 300 MG CAPSULE PO SCH ×3 (10:22→21:21)
[2021-04-19] MEDS: Apixaban 5 MG TABLET PO SCH ×2 (10:22→21:20)
[2021-04-19] MEDS: Furosemide 20 MG/2 ML VIAL IVP SCH (10:23)
[2021-04-19 17:02] LABS: Basophils % 0.1 %; Immature Granulocytes % 0.5 % (0-4); Lymphocytes % 3.1 %; Red Cell Distribution Width 13.3 % (11.5-14.5); Segmented Neutrophils % 94.2 %
[2021-04-19 17:04] LABS: Eosinophils % 0.3 %; Hematocrit 51.4 % (37.5-50.1); Immature Platelets 8.9 % (1.1-6.1); Lymphocytes # 0.4 K/mcL (0.6-4.6); Mean Corpuscular HGB Conc 33.1 g/dL (31.6-35.5); Mean Corpuscular Hemoglobin 30.6 pg (28.0-33.3); Mean Corpuscular Volume 92.4 fL (83.0-100.0); Mean Platelet Volume 11.6 fL (9.4-12.4); Monocytes # 0.2 K/mcL (0.0-1.3); Monocytes % 1.8 %; Neutrophils # 12.6 K/mcL (1.6-8.9); Platelet Count 101 K/mcL (140-400); Red Blood Count 5.56 M/mcL (4.19-5.50); White Blood Count 13.4 K/mcL (4.3-11.1)
[2021-04-19 17:17] LABS: BUN/Creatinine Ratio 27 (6-26); Blood Urea Nitrogen 29 mg/dL (8-23); Calcium 8.1 mg/dL (8.6-10.3); Carbon Dioxide 33 mEq/L (23-29); Chloride 98 mEq/L (98-107); Glucose 207 mg/dL (70-105); Osmolality,Calculated 296 (280-300); Potassium 4.2 mEq/L (3.5-5.1); Sodium 137 mEq/L (136-145); eGFR For African Americans > 60 (> 60); eGFR For Non-African Americans > 60 (> 60)
[2021-04-19] MEDS: Artificial Tears SOLN 15 ML BOTTLE BOTH EYES SCH (21:20)
[2021-04-20 01:54] LABS: Red Cell Distribution Width 13.2 % (11.5-14.5)
[2021-04-20 01:56] LABS: Hematocrit 47.4 % (37.5-50.1); Immature Platelets 8.9 % (1.1-6.1); Mean Corpuscular HGB Conc 33.8 g/dL (31.6-35.5); Mean Corpuscular Hemoglobin 30.7 pg (28.0-33.3); Mean Corpuscular Volume 90.8 fL (83.0-100.0); Mean Platelet Volume 11.4 fL (9.4-12.4); Red Blood Count 5.22 M/mcL (4.19-5.50)
[2021-04-20 02:11] LABS: BUN/Creatinine Ratio 34 (6-26); Blood Urea Nitrogen 31 mg/dL (8-23); C-Reactive Protein 15 mg/L (Less than 10); Calcium 7.7 mg/dL (8.6-10.3); Carbon Dioxide 27 mEq/L (23-29); Chloride 100 mEq/L (98-107); Glucose 219 mg/dL (70-105); Lactate Dehydrogenase 404 Units/L (140-271); Osmolality,Calculated 295 (280-300); Potassium 3.7 mEq/L (3.5-5.1); Sodium 136 mEq/L (136-145); eGFR For African Americans > 60 (> 60); eGFR For Non-African Americans > 60 (> 60)
[2021-04-20 02:25] LABS: Ferritin 636 ng/mL (20-250)
[2021-04-20] MEDS: Ipratropium 1 PUFF INHALER IH SCH ×6 (04:10→23:17)
[2021-04-20] MEDS: Piperacillin/Tazobactam 3.375 GM in 0.9 % Sodium Chloride Mini Bag 100 ML IVPB SCH ×3 (05:20→23:29)
[2021-04-20] MEDS: Metoprolol XL (24 HR) Succ 50 MG TAB.ER.24H PO SCH (08:09)
[2021-04-20] MEDS: Chlorhexidine Rinse 15 ML MOUTHWASH MM SCH ×2 (08:09→19:53)
[2021-04-20] MEDS: Insulin LISPRO 300 UNITS/3 ML VIAL SUBQ SCH ×4 (08:09→19:54)
[2021-04-20] MEDS: Furosemide 20 MG/2 ML VIAL IVP SCH (08:10)
[2021-04-20] MEDS: Pyridoxine (B-6) 50 MG TABLET PO SCH (08:10)
[2021-04-20] MEDS: Gabapentin 300 MG CAPSULE PO SCH ×3 (08:10→19:53)
[2021-04-20] MEDS: Aspirin Enteric Coated 81 MG Tablet PO SCH (08:10)
[2021-04-20] MEDS: Cholecalciferol (D-3) 1,000 UNIT (25MCG) TABLET PO SCH (08:10)
[2021-04-20] MEDS: Cyanocobalamin (B-12) 1,000 MCG TABLET PO SCH (08:10)
[2021-04-20] MEDS: Carbidopa/Levodopa 25/100 TABLET PO SCH ×2 (08:10→12:25)
[2021-04-20] MEDS: Apixaban 5 MG TABLET PO SCH ×2 (08:10→19:53)
[2021-04-20] MEDS: Artificial Tears SOLN 15 ML BOTTLE BOTH EYES SCH (23:23)
[2021-04-21] MEDS: Ipratropium 1 PUFF INHALER IH SCH ×6 (04:01→23:58)
[2021-04-21 05:25] LABS: Hematocrit 47.2 % (37.5-50.1); Mean Corpuscular HGB Conc 33.9 g/dL (31.6-35.5); Mean Corpuscular Hemoglobin 30.9 pg (28.0-33.3); Mean Corpuscular Volume 91.3 fL (83.0-100.0); Mean Platelet Volume 11.6 fL (9.4-12.4); Red Blood Count 5.17 M/mcL (4.19-5.50); Red Cell Distribution Width 13.2 % (11.5-14.5); White Blood Count 7.8 K/mcL (4.3-11.1)
[2021-04-21 05:39] LABS: BUN/Creatinine Ratio 30 (6-26); Blood Urea Nitrogen 29 mg/dL (8-23); Carbon Dioxide 29 mEq/L (23-29); Chloride 100 mEq/L (98-107); Glucose 256 mg/dL (70-105); Osmolality,Calculated 301 (280-300); Potassium 3.8 mEq/L (3.5-5.1); Sodium 138 mEq/L (136-145); eGFR For African Americans > 60 (> 60); eGFR For Non-African Americans > 60 (> 60)
[2021-04-21 05:57] LABS: Ferritin 552 ng/mL (20-250)
[2021-04-21] MEDS: Piperacillin/Tazobactam 3.375 GM in 0.9 % Sodium Chloride Mini Bag 100 ML IVPB SCH ×3 (06:34→22:58)
[2021-04-21] MEDS: Insulin LISPRO 300 UNITS/3 ML VIAL SUBQ SCH ×4 (08:18→20:41)
[2021-04-21] MEDS: Chlorhexidine Rinse 15 ML MOUTHWASH MM SCH ×2 (08:22→20:40)
[2021-04-21] MEDS: Metoprolol XL (24 HR) Succ 50 MG TAB.ER.24H PO SCH (08:22)
[2021-04-21] MEDS: Cyanocobalamin (B-12) 1,000 MCG TABLET PO SCH (08:22)
[2021-04-21] MEDS: Pyridoxine (B-6) 50 MG TABLET PO SCH (08:23)
[2021-04-21] MEDS: Apixaban 5 MG TABLET PO SCH ×2 (08:23→20:41)
[2021-04-21] MEDS: Cholecalciferol (D-3) 1,000 UNIT (25MCG) TABLET PO SCH (08:23)
[2021-04-21] MEDS: Aspirin Enteric Coated 81 MG Tablet PO SCH (08:23)
[2021-04-21] MEDS: Carbidopa/Levodopa 25/100 TABLET PO SCH ×2 (08:23→12:24)
[2021-04-21] MEDS: Gabapentin 300 MG CAPSULE PO SCH ×3 (08:23→20:41)
[2021-04-21] MEDS: Furosemide 20 MG/2 ML VIAL IVP SCH (08:24)
[2021-04-21 09:58] LABS: C-Reactive Protein 9 mg/L (Less than 10)
[2021-04-21] MEDS: Artificial Tears SOLN 15 ML BOTTLE BOTH EYES SCH (20:40)
[2021-04-22] MEDS: Ipratropium 1 PUFF INHALER IH SCH ×6 (03:49→23:51)
[2021-04-22] MEDS: Furosemide 20 MG/2 ML VIAL IVP SCH (10:56)
[2021-04-22] MEDS: Aspirin Enteric Coated 81 MG Tablet PO SCH (10:57)
[2021-04-22] MEDS: Metoprolol XL (24 HR) Succ 50 MG TAB.ER.24H PO SCH (10:58)
[2021-04-22] MEDS: Apixaban 5 MG TABLET PO SCH ×2 (10:58→21:34)
[2021-04-22] MEDS: Cyanocobalamin (B-12) 1,000 MCG TABLET PO SCH (10:58)
[2021-04-22] MEDS: Pyridoxine (B-6) 50 MG TABLET PO SCH (10:58)
[2021-04-22] MEDS: Cholecalciferol (D-3) 1,000 UNIT (25MCG) TABLET PO SCH (10:58)
[2021-04-22] MEDS: Benzonatate 100 MG CAPSULE PO PRN (10:58)
[2021-04-22] MEDS: Gabapentin 300 MG CAPSULE PO SCH ×3 (10:59→21:34)
[2021-04-22] MEDS: Chlorhexidine Rinse 15 ML MOUTHWASH MM SCH ×2 (11:01→21:34)
[2021-04-22] MEDS: Carbidopa/Levodopa 25/100 TABLET PO SCH ×2 (11:02→15:01)
[2021-04-22] MEDS: Insulin LISPRO 300 UNITS/3 ML VIAL SUBQ SCH ×4 (11:09→21:34)
[2021-04-22] MEDS ORDERED: Insulin DETEMIR 100 UNIT/ML X5UNITS SUBQ SCH (21:00)
[2021-04-22] MEDS: Artificial Tears SOLN 15 ML BOTTLE BOTH EYES SCH (21:33)
[2021-04-23] MEDS: Ipratropium 1 PUFF INHALER IH SCH ×6 (03:56→23:49)
[2021-04-23] MEDS: Cholecalciferol (D-3) 1,000 UNIT (25MCG) TABLET PO SCH (09:00)
[2021-04-23] MEDS: Aspirin Enteric Coated 81 MG Tablet PO SCH (09:00)
[2021-04-23] MEDS: Pyridoxine (B-6) 50 MG TABLET PO SCH (09:00)
[2021-04-23] MEDS: Gabapentin 300 MG CAPSULE PO SCH ×3 (09:00→20:45)
[2021-04-23] MEDS: Cyanocobalamin (B-12) 1,000 MCG TABLET PO SCH (09:00)
[2021-04-23] MEDS: Chlorhexidine Rinse 15 ML MOUTHWASH MM SCH ×2 (09:00→20:45)
[2021-04-23] MEDS: Carbidopa/Levodopa 25/100 TABLET PO SCH ×2 (09:01→12:03)
[2021-04-23] MEDS: Furosemide 20 MG/2 ML VIAL IVP SCH (09:01)
[2021-04-23] MEDS: Metoprolol XL (24 HR) Succ 50 MG TAB.ER.24H PO SCH (09:01)
[2021-04-23] MEDS: Apixaban 5 MG TABLET PO SCH ×2 (09:01→20:45)
[2021-04-23] MEDS: Insulin LISPRO 300 UNITS/3 ML VIAL SUBQ SCH ×4 (09:02→20:45)
[2021-04-23] MEDS ORDERED: Insulin Human Regular 10 UNIT in 0.9 % Sodium Chloride 10 ML IV ONE (17:36)
[2021-04-23] MEDS: Artificial Tears SOLN 15 ML BOTTLE BOTH EYES SCH (20:37)
[2021-04-23] MEDS: Insulin DETEMIR 100 UNIT/ML X5UNITS SUBQ SCH (20:45)
[2021-04-24] MEDS: Ipratropium 1 PUFF INHALER IH SCH ×6 (03:52→23:45)
[2021-04-24] MEDS: Insulin LISPRO 300 UNITS/3 ML VIAL SUBQ SCH ×4 (07:43→21:07)
[2021-04-24] MEDS: Gabapentin 300 MG CAPSULE PO SCH ×3 (08:58→21:06)
[2021-04-24] MEDS: Metoprolol XL (24 HR) Succ 50 MG TAB.ER.24H PO SCH (08:58)
[2021-04-24] MEDS: Cholecalciferol (D-3) 1,000 UNIT (25MCG) TABLET PO SCH (08:58)
[2021-04-24] MEDS: Pyridoxine (B-6) 50 MG TABLET PO SCH (08:58)
[2021-04-24] MEDS: Cyanocobalamin (B-12) 1,000 MCG TABLET PO SCH (08:58)
[2021-04-24] MEDS: Carbidopa/Levodopa 25/100 TABLET PO SCH ×2 (08:58→12:29)
[2021-04-24] MEDS: Apixaban 5 MG TABLET PO SCH ×2 (08:58→21:06)
[2021-04-24] MEDS: Chlorhexidine Rinse 15 ML MOUTHWASH MM SCH ×2 (08:59→21:07)
[2021-04-24] MEDS: Aspirin Enteric Coated 81 MG Tablet PO SCH (08:59)
[2021-04-24] MEDS: Artificial Tears SOLN 15 ML BOTTLE BOTH EYES SCH (21:06)
[2021-04-24] MEDS: Insulin DETEMIR 100 UNIT/ML X5UNITS SUBQ SCH (21:07)
[2021-04-25] MEDS: Ipratropium 1 PUFF INHALER IH SCH ×6 (03:04→23:26)
[2021-04-25] MEDS: Insulin LISPRO 300 UNITS/3 ML VIAL SUBQ SCH ×4 (08:00→22:00)
[2021-04-25] MEDS: Chlorhexidine Rinse 15 ML MOUTHWASH MM SCH ×2 (08:35→21:59)
[2021-04-25] MEDS: Cholecalciferol (D-3) 1,000 UNIT (25MCG) TABLET PO SCH (08:35)
[2021-04-25] MEDS: Pyridoxine (B-6) 50 MG TABLET PO SCH (08:36)
[2021-04-25] MEDS: Metoprolol XL (24 HR) Succ 50 MG TAB.ER.24H PO SCH (08:36)
[2021-04-25] MEDS: Gabapentin 300 MG CAPSULE PO SCH ×3 (08:36→22:00)
[2021-04-25] MEDS: Carbidopa/Levodopa 25/100 TABLET PO SCH ×2 (08:36→12:08)
[2021-04-25] MEDS: Aspirin Enteric Coated 81 MG Tablet PO SCH (08:36)
[2021-04-25] MEDS: Cyanocobalamin (B-12) 1,000 MCG TABLET PO SCH (08:36)
[2021-04-25] MEDS: Apixaban 5 MG TABLET PO SCH ×2 (08:36→22:00)
[2021-04-25] MEDS: Artificial Tears SOLN 15 ML BOTTLE BOTH EYES SCH (21:59)
[2021-04-25] MEDS: Insulin DETEMIR 100 UNIT/ML X5UNITS SUBQ SCH (22:00)
[2021-04-26] MEDS: Ipratropium 1 PUFF INHALER IH SCH ×6 (04:03→23:49)
[2021-04-26] MEDS: Insulin LISPRO 300 UNITS/3 ML VIAL SUBQ SCH ×4 (10:07→21:07)
[2021-04-26] MEDS: Cholecalciferol (D-3) 1,000 UNIT (25MCG) TABLET PO SCH (10:14)
[2021-04-26] MEDS: Apixaban 5 MG TABLET PO SCH ×2 (10:14→21:07)
[2021-04-26] MEDS: Metoprolol XL (24 HR) Succ 50 MG TAB.ER.24H PO SCH (10:14)
[2021-04-26] MEDS: Cyanocobalamin (B-12) 1,000 MCG TABLET PO SCH (10:14)
[2021-04-26] MEDS: Gabapentin 300 MG CAPSULE PO SCH ×3 (10:14→21:07)
[2021-04-26] MEDS: Aspirin Enteric Coated 81 MG Tablet PO SCH (10:14)
[2021-04-26] MEDS: Pyridoxine (B-6) 50 MG TABLET PO SCH (10:14)
[2021-04-26] MEDS: Chlorhexidine Rinse 15 ML MOUTHWASH MM SCH ×2 (10:15→21:08)
[2021-04-26] MEDS: Carbidopa/Levodopa 25/100 TABLET PO SCH ×2 (10:15→12:49)
[2021-04-26] MEDS: Insulin DETEMIR 100 UNIT/ML X5UNITS SUBQ SCH (21:07)
[2021-04-26] MEDS: Artificial Tears SOLN 15 ML BOTTLE BOTH EYES SCH (21:08)
[2021-04-27] MEDS: Ipratropium 1 PUFF INHALER IH SCH ×5 (04:03→20:49)
[2021-04-27] MEDS: Insulin LISPRO 300 UNITS/3 ML VIAL SUBQ SCH ×4 (09:04→20:38)
[2021-04-27] MEDS: Carbidopa/Levodopa 25/100 TABLET PO SCH ×2 (09:12→12:13)
[2021-04-27] MEDS: Cholecalciferol (D-3) 1,000 UNIT (25MCG) TABLET PO SCH (09:12)
[2021-04-27] MEDS: Apixaban 5 MG TABLET PO SCH ×2 (09:13→20:34)
[2021-04-27] MEDS: Gabapentin 300 MG CAPSULE PO SCH ×3 (09:13→20:34)
[2021-04-27] MEDS: Chlorhexidine Rinse 15 ML MOUTHWASH MM SCH ×2 (09:13→20:35)
[2021-04-27] MEDS: Cyanocobalamin (B-12) 1,000 MCG TABLET PO SCH (09:13)
[2021-04-27] MEDS: Aspirin Enteric Coated 81 MG Tablet PO SCH (09:13)
[2021-04-27] MEDS: Metoprolol XL (24 HR) Succ 50 MG TAB.ER.24H PO SCH (09:13)
[2021-04-27] MEDS: Pyridoxine (B-6) 50 MG TABLET PO SCH (09:13)
[2021-04-27 10:12] LABS: Eosinophils % 5.2 %
[2021-04-27 10:14] LABS: Basophils % 0.3 %; Eosinophils # 0.3 K/mcL (0.0-0.6); Hematocrit 44.1 % (37.5-50.1); Hemoglobin 14.9 g/dL (12.9-16.9); Immature Granulocytes % 0.3 % (0-4); Immature Platelets 6.2 % (1.1-6.1); Lymphocytes # 0.7 K/mcL (0.6-4.6); Lymphocytes % 12.2 %; Mean Corpuscular HGB Conc 33.8 g/dL (31.6-35.5); Mean Corpuscular Hemoglobin 31.8 pg (28.0-33.3); Mean Platelet Volume 11.2 fL (9.4-12.4); Monocytes # 0.4 K/mcL (0.0-1.3); Monocytes % 7.2 %; Neutrophils # 4.3 K/mcL (1.6-8.9); Red Blood Count 4.69 M/mcL (4.19-5.50); Segmented Neutrophils % 74.8 %; White Blood Count 5.7 K/mcL (4.3-11.1)
[2021-04-27 10:15] LABS: Platelet Count 55 K/mcL (140-400)
[2021-04-27 12:57] LABS: BUN/Creatinine Ratio 19 (6-26); Blood Urea Nitrogen 14 mg/dL (8-23); Carbon Dioxide 29 mEq/L (23-29); Chloride 102 mEq/L (98-107); Glucose 158 mg/dL (70-105); Osmolality,Calculated 288 (280-300); Potassium 4.5 mEq/L (3.5-5.1); Sodium 137 mEq/L (136-145); eGFR For African Americans > 60 (> 60); eGFR For Non-African Americans > 60 (> 60)
[2021-04-27] MEDS: Artificial Tears SOLN 15 ML BOTTLE BOTH EYES SCH (20:35)
[2021-04-27] MEDS: Insulin DETEMIR 100 UNIT/ML X5UNITS SUBQ SCH (20:37)
[2021-04-28] MEDS: Ipratropium 1 PUFF INHALER IH SCH ×6 (00:30→19:56)
[2021-04-28] MEDS: Apixaban 5 MG TABLET PO SCH ×2 (08:17→20:25)
[2021-04-28] MEDS: Gabapentin 300 MG CAPSULE PO SCH ×3 (08:17→20:25)
[2021-04-28] MEDS: Aspirin Enteric Coated 81 MG Tablet PO SCH (08:17)
[2021-04-28] MEDS: Cholecalciferol (D-3) 1,000 UNIT (25MCG) TABLET PO SCH (08:17)
[2021-04-28] MEDS: Pyridoxine (B-6) 50 MG TABLET PO SCH (08:17)
[2021-04-28] MEDS: Carbidopa/Levodopa 25/100 TABLET PO SCH ×2 (08:18→11:01)
[2021-04-28] MEDS: Metoprolol XL (24 HR) Succ 50 MG TAB.ER.24H PO SCH (08:18)
[2021-04-28] MEDS: Cyanocobalamin (B-12) 1,000 MCG TABLET PO SCH (08:18)
[2021-04-28] MEDS: Insulin LISPRO 300 UNITS/3 ML VIAL SUBQ SCH ×4 (08:19→20:20)
[2021-04-28] MEDS: Chlorhexidine Rinse 15 ML MOUTHWASH MM SCH ×2 (08:19→20:25)
[2021-04-28] MEDS: Insulin DETEMIR 100 UNIT/ML X5UNITS SUBQ SCH (20:25)
[2021-04-28] MEDS: Artificial Tears SOLN 15 ML BOTTLE BOTH EYES SCH (20:25)
[2021-04-29] MEDS: Ipratropium 1 PUFF INHALER IH SCH ×6 (00:08→20:53)
[2021-04-29] MEDS: Apixaban 5 MG TABLET PO SCH ×2 (08:01→21:02)
[2021-04-29] MEDS: Metoprolol XL (24 HR) Succ 50 MG TAB.ER.24H PO SCH (08:02)
[2021-04-29] MEDS: Aspirin Enteric Coated 81 MG Tablet PO SCH (08:02)
[2021-04-29] MEDS: Insulin LISPRO 300 UNITS/3 ML VIAL SUBQ SCH ×4 (08:02→21:04)
[2021-04-29] MEDS: Cyanocobalamin (B-12) 1,000 MCG TABLET PO SCH (08:02)
[2021-04-29] MEDS: Cholecalciferol (D-3) 1,000 UNIT (25MCG) TABLET PO SCH (08:02)
[2021-04-29] MEDS: Gabapentin 300 MG CAPSULE PO SCH ×3 (08:02→21:04)
[2021-04-29] MEDS: Pyridoxine (B-6) 50 MG TABLET PO SCH (08:02)
[2021-04-29] MEDS: Chlorhexidine Rinse 15 ML MOUTHWASH MM SCH ×2 (08:02→21:02)
[2021-04-29] MEDS: Carbidopa/Levodopa 25/100 TABLET PO SCH ×2 (08:02→12:02)
[2021-04-29 11:40] LABS: Immature Granulocytes % 0.2 % (0-4); Mean Corpuscular Volume 95.3 fL (83.0-100.0)
[2021-04-29 11:42] LABS: Basophils % 0.2 %; Eosinophils # 0.2 K/mcL (0.0-0.6); Eosinophils % 5.6 %; Hematocrit 44.6 % (37.5-50.1); Hemoglobin 14.5 g/dL (12.9-16.9); Immature Platelets 5.8 % (1.1-6.1); Lymphocytes # 0.5 K/mcL (0.6-4.6); Lymphocytes % 12.6 %; Mean Corpuscular HGB Conc 32.5 g/dL (31.6-35.5); Mean Platelet Volume 10.8 fL (9.4-12.4); Monocytes # 0.5 K/mcL (0.0-1.3); Monocytes % 10.5 %; Red Blood Count 4.68 M/mcL (4.19-5.50); Red Cell Distribution Width 14.3 % (11.5-14.5); Segmented Neutrophils % 70.9 %; White Blood Count 4.3 K/mcL (4.3-11.1)
[2021-04-29 11:48] LABS: Neutrophils # 3.1 K/mcL (1.6-8.9); Platelet Count 63 K/mcL (140-400)
[2021-04-29] MEDS: Insulin DETEMIR 100 UNIT/ML X5UNITS SUBQ SCH (21:02)
[2021-04-29] MEDS: Artificial Tears SOLN 15 ML BOTTLE BOTH EYES SCH (21:02)
[2021-04-30] MEDS: Ipratropium 1 PUFF INHALER IH SCH ×7 (00:23→23:36)
[2021-04-30] MEDS: Insulin LISPRO 300 UNITS/3 ML VIAL SUBQ SCH ×4 (08:51→20:26)
[2021-04-30] MEDS: Carbidopa/Levodopa 25/100 TABLET PO SCH ×2 (08:52→13:57)
[2021-04-30] MEDS: Pyridoxine (B-6) 50 MG TABLET PO SCH (08:53)
[2021-04-30] MEDS: Cyanocobalamin (B-12) 1,000 MCG TABLET PO SCH (08:53)
[2021-04-30] MEDS: Metoprolol XL (24 HR) Succ 50 MG TAB.ER.24H PO SCH (08:53)
[2021-04-30] MEDS: Cholecalciferol (D-3) 1,000 UNIT (25MCG) TABLET PO SCH (08:53)
[2021-04-30] MEDS: Apixaban 5 MG TABLET PO SCH ×2 (08:53→20:25)
[2021-04-30] MEDS: Aspirin Enteric Coated 81 MG Tablet PO SCH (08:53)
[2021-04-30] MEDS: Chlorhexidine Rinse 15 ML MOUTHWASH MM SCH ×2 (08:53→20:25)
[2021-04-30] MEDS: Gabapentin 300 MG CAPSULE PO SCH ×3 (08:53→20:25)
[2021-04-30] MEDS ORDERED: MOM Conc 10 ML UD.LIQ PO PRN (20:15)
[2021-04-30] MEDS: Artificial Tears SOLN 15 ML BOTTLE BOTH EYES SCH (20:25)
[2021-04-30] MEDS: Insulin DETEMIR 100 UNIT/ML X5UNITS SUBQ SCH (20:26)
[2021-05-01] MEDS: Ipratropium 1 PUFF INHALER IH SCH ×5 (03:35→19:39)
[2021-05-01] MEDS ORDERED: Cefepime HCl 1,000 MG in 0.9 % Sodium Chloride Mini Bag 100 ML IVP SCH (08:00)
[2021-05-01] MEDS: Insulin LISPRO 300 UNITS/3 ML VIAL SUBQ SCH ×4 (10:49→20:43)
[2021-05-01] MEDS: Vancomycin 1,750 MG/517.5 ML IV.SOLN IVPB SCH ×2 (10:50→21:08)
[2021-05-01] MEDS: Cholecalciferol (D-3) 1,000 UNIT (25MCG) TABLET PO SCH (10:58)
[2021-05-01] MEDS: Metoprolol XL (24 HR) Succ 50 MG TAB.ER.24H PO SCH (10:58)
[2021-05-01] MEDS: Pyridoxine (B-6) 50 MG TABLET PO SCH (10:59)
[2021-05-01] MEDS: Cyanocobalamin (B-12) 1,000 MCG TABLET PO SCH (10:59)
[2021-05-01] MEDS: Gabapentin 300 MG CAPSULE PO SCH ×3 (10:59→21:07)
[2021-05-01] MEDS: Apixaban 5 MG TABLET PO SCH ×2 (10:59→21:07)
[2021-05-01] MEDS: Carbidopa/Levodopa 25/100 TABLET PO SCH ×2 (10:59→14:16)
[2021-05-01] MEDS: Aspirin Enteric Coated 81 MG Tablet PO SCH (11:00)
[2021-05-01] MEDS: Chlorhexidine Rinse 15 ML MOUTHWASH MM SCH ×2 (11:00→21:07)
[2021-05-01] MEDS: Cefepime HCl 1,000 MG in 0.9 % Sodium Chloride Mini Bag 100 ML IVPB SCH (14:06)
[2021-05-01 14:31] LABS: BUN/Creatinine Ratio 15 (6-26); Blood Urea Nitrogen 11 mg/dL (8-23); Calcium 7.3 mg/dL (8.6-10.3); Carbon Dioxide 25 mEq/L (23-29); Chloride 104 mEq/L (98-107); Glucose 259 mg/dL (70-105); Osmolality,Calculated 286 (280-300); Potassium 4.2 mEq/L (3.5-5.1); Sodium 134 mEq/L (136-145); eGFR For African Americans > 60 (> 60); eGFR For Non-African Americans > 60 (> 60)
[2021-05-01] MEDS: Insulin DETEMIR 100 UNIT/ML X5UNITS SUBQ SCH (21:07)
[2021-05-01] MEDS: Artificial Tears SOLN 15 ML BOTTLE BOTH EYES SCH (21:08)
[2021-05-02] MEDS: Cefepime HCl 1,000 MG in 0.9 % Sodium Chloride Mini Bag 100 ML IVPB SCH ×4 (00:24→23:53)
[2021-05-02] MEDS: Ipratropium 1 PUFF INHALER IH SCH ×7 (00:36→23:49)
[2021-05-02 05:56] LABS: Red Cell Distribution Width 14.4 % (11.5-14.5)
[2021-05-02 05:58] LABS: Hematocrit 39.1 % (37.5-50.1); Hemoglobin 12.7 g/dL (12.9-16.9); Immature Platelets 3.3 % (1.1-6.1); Mean Corpuscular HGB Conc 32.5 g/dL (31.6-35.5); Mean Corpuscular Hemoglobin 30.6 pg (28.0-33.3); Mean Corpuscular Volume 94.2 fL (83.0-100.0); Red Blood Count 4.15 M/mcL (4.19-5.50); White Blood Count 4.9 K/mcL (4.3-11.1)
[2021-05-02 06:18] LABS: BUN/Creatinine Ratio 15 (6-26); Blood Urea Nitrogen 9 mg/dL (8-23); Calcium 7.5 mg/dL (8.6-10.3); Carbon Dioxide 26 mEq/L (23-29); Chloride 105 mEq/L (98-107); Glucose 92 mg/dL (70-105); Osmolality,Calculated 280 (280-300); Potassium 3.7 mEq/L (3.5-5.1); Sodium 136 mEq/L (136-145); eGFR For African Americans > 60 (> 60); eGFR For Non-African Americans > 60 (> 60)
[2021-05-02] MEDS: Aspirin Enteric Coated 81 MG Tablet PO SCH (07:52)
[2021-05-02] MEDS: Metoprolol XL (24 HR) Succ 50 MG TAB.ER.24H PO SCH (07:52)
[2021-05-02] MEDS: Chlorhexidine Rinse 15 ML MOUTHWASH MM SCH ×2 (07:52→20:54)
[2021-05-02] MEDS: Gabapentin 300 MG CAPSULE PO SCH ×3 (07:52→20:55)
[2021-05-02] MEDS: Cyanocobalamin (B-12) 1,000 MCG TABLET PO SCH (07:52)
[2021-05-02] MEDS: Pyridoxine (B-6) 50 MG TABLET PO SCH (07:53)
[2021-05-02] MEDS: Apixaban 5 MG TABLET PO SCH ×2 (07:53→20:55)
[2021-05-02] MEDS: Cholecalciferol (D-3) 1,000 UNIT (25MCG) TABLET PO SCH (07:53)
[2021-05-02] MEDS: Carbidopa/Levodopa 25/100 TABLET PO SCH ×2 (07:53→11:55)
[2021-05-02] MEDS: Insulin LISPRO 300 UNITS/3 ML VIAL SUBQ SCH ×4 (07:58→20:55)
[2021-05-02] MEDS: Vancomycin 1,750 MG/517.5 ML IV.SOLN IVPB SCH ×2 (12:31→20:56)
[2021-05-02] MEDS ORDERED: Acetaminophen 325 MG TABLET PO ONE (19:08)
[2021-05-02] MEDS: Artificial Tears SOLN 15 ML BOTTLE BOTH EYES SCH (20:55)
[2021-05-02] MEDS: Insulin DETEMIR 100 UNIT/ML X5UNITS SUBQ SCH (20:55)
[2021-05-03] MEDS ORDERED: Acetaminophen 325 MG TABLET PO ONE (01:07)
[2021-05-03] MEDS: Ipratropium 1 PUFF INHALER IH SCH ×5 (04:07→20:35)
[2021-05-03] MEDS: Cefepime HCl 1,000 MG in 0.9 % Sodium Chloride Mini Bag 100 ML IVPB SCH ×2 (08:21→17:29)
[2021-05-03] MEDS: Insulin LISPRO 300 UNITS/3 ML VIAL SUBQ SCH ×4 (08:21→21:00)
[2021-05-03] MEDS: Pyridoxine (B-6) 50 MG TABLET PO SCH (08:23)
[2021-05-03] MEDS: Cholecalciferol (D-3) 1,000 UNIT (25MCG) TABLET PO SCH (08:23)
[2021-05-03] MEDS: Chlorhexidine Rinse 15 ML MOUTHWASH MM SCH ×2 (08:23→21:12)
[2021-05-03] MEDS: Carbidopa/Levodopa 25/100 TABLET PO SCH ×2 (08:23→11:33)
[2021-05-03] MEDS: Metoprolol XL (24 HR) Succ 50 MG TAB.ER.24H PO SCH (08:23)
[2021-05-03] MEDS: Aspirin Enteric Coated 81 MG Tablet PO SCH (08:23)
[2021-05-03] MEDS: Cyanocobalamin (B-12) 1,000 MCG TABLET PO SCH (08:23)
[2021-05-03] MEDS: Apixaban 5 MG TABLET PO SCH ×2 (08:23→21:12)
[2021-05-03] MEDS: Gabapentin 300 MG CAPSULE PO SCH ×3 (08:23→23:29)
[2021-05-03] MEDS: Vancomycin 1,750 MG/517.5 ML IV.SOLN IVPB SCH ×2 (08:27→21:00)
[2021-05-03] MEDS: Fluconazole 100 MG TABLET PO SCH (11:33)
[2021-05-03 15:22] LABS: Bilirubin,Urine Negative (Negative); Blood,Urine Small (Negative); Clarity,Urine Clear (Clear); Color,Urine Yellow (Yellow); Glucose,Urine (UA) Normal (Normal); Ketones,Urine Negative (Negative); Leukocyte Esterase,Urine Negative (Negative); Nitrite,Urine Negative (Negative); PH,Urine 5.5 pH Units (5.0-8.0); Protein,Urine Trace mg/dL (Neg-Trace); Specific Gravity,Urine 1.025 (1.010-1.025); Urobilinogen,Urine Normal (Normal)
[2021-05-03 15:46] LABS: Amorphous Sediment,Urine Few per hpf (None-Few); Bacteria,Urine Few per hpf (None-Few); Mucus,Urine Few per lpf (None-Few); RBC,Urine 0-3 per hpf (0-3); Squamous Epithelial Cell,Urine Few per hpf (None-Few)
[2021-05-03] MEDS: Artificial Tears SOLN 15 ML BOTTLE BOTH EYES SCH (21:12)
[2021-05-03] MEDS: Insulin DETEMIR 100 UNIT/ML X5UNITS SUBQ SCH (21:12)
[2021-05-04] MEDS: Cefepime HCl 1,000 MG in 0.9 % Sodium Chloride Mini Bag 100 ML IVPB SCH ×4 (00:03→23:40)
[2021-05-04 01:32] LABS: Basophils % 0.6 %; Immature Granulocytes % 0.4 % (0-4); Mean Corpuscular Hemoglobin 30.3 pg (28.0-33.3); Red Cell Distribution Width 14.4 % (11.5-14.5)
[2021-05-04 01:34] LABS: Eosinophils # 0.1 K/mcL (0.0-0.6); Eosinophils % 2.5 %; Hematocrit 37.5 % (37.5-50.1); Hemoglobin 12.1 g/dL (12.9-16.9); Immature Platelets 2.4 % (1.1-6.1); Lymphocytes # 1.6 K/mcL (0.6-4.6); Lymphocytes % 31.6 %; Mean Corpuscular HGB Conc 32.3 g/dL (31.6-35.5); Mean Platelet Volume 10.3 fL (9.4-12.4); Monocytes # 0.7 K/mcL (0.0-1.3); Monocytes % 13.1 %; Neutrophils # 2.6 K/mcL (1.6-8.9); Platelet Count 122 K/mcL (140-400); Red Blood Count 3.99 M/mcL (4.19-5.50); Segmented Neutrophils % 51.8 %; White Blood Count 5.1 K/mcL (4.3-11.1)
[2021-05-04 01:44] LABS: BUN/Creatinine Ratio 12 (6-26); Blood Urea Nitrogen 8 mg/dL (8-23); Calcium 7.3 mg/dL (8.6-10.3); Carbon Dioxide 24 mEq/L (23-29); Chloride 105 mEq/L (98-107); Glucose 193 mg/dL (70-105); Osmolality,Calculated 284 (280-300); Sodium 135 mEq/L (136-145); eGFR For African Americans > 60 (> 60); eGFR For Non-African Americans > 60 (> 60)
[2021-05-04] MEDS: Ipratropium 1 PUFF INHALER IH SCH ×6 (04:01→20:47)
[2021-05-04] MEDS: Fluconazole 100 MG TABLET PO SCH (08:55)
[2021-05-04] MEDS: Apixaban 5 MG TABLET PO SCH ×2 (08:55→20:19)
[2021-05-04] MEDS: Chlorhexidine Rinse 15 ML MOUTHWASH MM SCH ×2 (08:55→20:19)
[2021-05-04] MEDS: Gabapentin 300 MG CAPSULE PO SCH ×3 (08:55→20:20)
[2021-05-04] MEDS: Aspirin Enteric Coated 81 MG Tablet PO SCH (08:56)
[2021-05-04] MEDS: Cyanocobalamin (B-12) 1,000 MCG TABLET PO SCH (08:56)
[2021-05-04] MEDS: Pyridoxine (B-6) 50 MG TABLET PO SCH (08:56)
[2021-05-04] MEDS: Metoprolol XL (24 HR) Succ 50 MG TAB.ER.24H PO SCH (08:56)
[2021-05-04] MEDS: Cholecalciferol (D-3) 1,000 UNIT (25MCG) TABLET PO SCH (08:56)
[2021-05-04] MEDS: Carbidopa/Levodopa 25/100 TABLET PO SCH ×2 (08:56→12:00)
[2021-05-04] MEDS: Insulin LISPRO 300 UNITS/3 ML VIAL SUBQ SCH ×5 (09:03→20:12)
[2021-05-04] MEDS: Vancomycin 1,750 MG/517.5 ML IV.SOLN IVPB SCH (10:31)
[2021-05-04] MEDS: Artificial Tears SOLN 15 ML BOTTLE BOTH EYES SCH (20:19)
[2021-05-04] MEDS: Insulin DETEMIR 100 UNIT/ML X5UNITS SUBQ SCH (20:20)
[2021-05-04] MEDS ORDERED: Acetaminophen 325 MG TABLET PO ONE (23:38)
[2021-05-05] MEDS: Ipratropium 1 PUFF INHALER IH SCH ×7 (00:09→23:21)
[2021-05-05 01:19] LABS: Hematocrit 38.1 % (37.5-50.1); Hemoglobin 12.4 g/dL (12.9-16.9); Mean Corpuscular HGB Conc 32.5 g/dL (31.6-35.5); Mean Corpuscular Volume 95.3 fL (83.0-100.0); Mean Platelet Volume 9.8 fL (9.4-12.4); Platelet Count 148 K/mcL (140-400); Red Cell Distribution Width 14.4 % (11.5-14.5); White Blood Count 5.7 K/mcL (4.3-11.1)
[2021-05-05 01:40] LABS: BUN/Creatinine Ratio 13 (6-26); Blood Urea Nitrogen 8 mg/dL (8-23); Calcium 7.4 mg/dL (8.6-10.3); Carbon Dioxide 25 mEq/L (23-29); Chloride 103 mEq/L (98-107); Glucose 182 mg/dL (70-105); Osmolality,Calculated 283 (280-300); Sodium 135 mEq/L (136-145); eGFR For African Americans > 60 (> 60); eGFR For Non-African Americans > 60 (> 60)
[2021-05-05] MEDS: Insulin LISPRO 300 UNITS/3 ML VIAL SUBQ SCH ×4 (07:57→21:02)
[2021-05-05] MEDS: Apixaban 5 MG TABLET PO SCH ×2 (08:04→21:02)
[2021-05-05] MEDS: Cholecalciferol (D-3) 1,000 UNIT (25MCG) TABLET PO SCH (08:04)
[2021-05-05] MEDS: Metoprolol XL (24 HR) Succ 50 MG TAB.ER.24H PO SCH (08:04)
[2021-05-05] MEDS: Carbidopa/Levodopa 25/100 TABLET PO SCH ×2 (08:04→12:27)
[2021-05-05] MEDS: Aspirin Enteric Coated 81 MG Tablet PO SCH (08:04)
[2021-05-05] MEDS: Fluconazole 100 MG TABLET PO SCH (08:04)
[2021-05-05] MEDS: Cyanocobalamin (B-12) 1,000 MCG TABLET PO SCH (08:05)
[2021-05-05] MEDS: Pyridoxine (B-6) 50 MG TABLET PO SCH (08:05)
[2021-05-05] MEDS: Gabapentin 300 MG CAPSULE PO SCH ×3 (08:05→21:01)
[2021-05-05] MEDS: Cefepime HCl 1,000 MG in 0.9 % Sodium Chloride Mini Bag 100 ML IVPB SCH ×3 (08:09→22:58)
[2021-05-05] MEDS: Chlorhexidine Rinse 15 ML MOUTHWASH MM SCH ×2 (08:11→21:02)
[2021-05-05] MEDS: Artificial Tears SOLN 15 ML BOTTLE BOTH EYES SCH (21:02)
[2021-05-05] MEDS: Insulin DETEMIR 100 UNIT/ML X5UNITS SUBQ SCH (21:02)
[2021-05-05] MEDS: Melatonin 3 MG TABLET PO PRN (21:02)
[2021-05-06] MEDS: Ipratropium 1 PUFF INHALER IH SCH ×6 (04:27→23:35)
[2021-05-06 06:07] LABS: Hemoglobin 12.3 g/dL (12.9-16.9); Mean Corpuscular HGB Conc 33.2 g/dL (31.6-35.5); Mean Corpuscular Hemoglobin 31.6 pg (28.0-33.3); Mean Corpuscular Volume 95.1 fL (83.0-100.0); Mean Platelet Volume 9.8 fL (9.4-12.4); Platelet Count 177 K/mcL (140-400); Red Blood Count 3.89 M/mcL (4.19-5.50); Red Cell Distribution Width 14.4 % (11.5-14.5); White Blood Count 6.5 K/mcL (4.3-11.1)
[2021-05-06 06:46] LABS: BUN/Creatinine Ratio 15 (6-26); Blood Urea Nitrogen 9 mg/dL (8-23); Calcium 7.6 mg/dL (8.6-10.3); Carbon Dioxide 27 mEq/L (23-29); Chloride 102 mEq/L (98-107); Glucose 146 mg/dL (70-105); Osmolality,Calculated 281 (280-300); Potassium 4.1 mEq/L (3.5-5.1); Sodium 135 mEq/L (136-145); eGFR For African Americans > 60 (> 60); eGFR For Non-African Americans > 60 (> 60)
[2021-05-06] MEDS: Cefepime HCl 1,000 MG in 0.9 % Sodium Chloride Mini Bag 100 ML IVPB SCH (08:32)
[2021-05-06] MEDS: Insulin LISPRO 300 UNITS/3 ML VIAL SUBQ SCH ×4 (08:32→20:33)
[2021-05-06] MEDS: Chlorhexidine Rinse 15 ML MOUTHWASH MM SCH ×2 (08:32→21:20)
[2021-05-06] MEDS: Cholecalciferol (D-3) 1,000 UNIT (25MCG) TABLET PO SCH (08:34)
[2021-05-06] MEDS: Fluconazole 100 MG TABLET PO SCH (08:34)
[2021-05-06] MEDS: Carbidopa/Levodopa 25/100 TABLET PO SCH ×2 (08:34→11:58)
[2021-05-06] MEDS: Pyridoxine (B-6) 50 MG TABLET PO SCH (08:34)
[2021-05-06] MEDS: Metoprolol XL (24 HR) Succ 50 MG TAB.ER.24H PO SCH (08:34)
[2021-05-06] MEDS: Gabapentin 300 MG CAPSULE PO SCH ×3 (08:34→20:41)
[2021-05-06] MEDS: Aspirin Enteric Coated 81 MG Tablet PO SCH (08:34)
[2021-05-06] MEDS: Cyanocobalamin (B-12) 1,000 MCG TABLET PO SCH (08:35)
[2021-05-06] MEDS: Apixaban 5 MG TABLET PO SCH ×2 (08:35→20:42)
[2021-05-06] MEDS: Furosemide 20 MG/2 ML VIAL IVP SCH (11:57)
[2021-05-06] MEDS: Artificial Tears SOLN 15 ML BOTTLE BOTH EYES SCH (20:42)
[2021-05-06] MEDS: Insulin DETEMIR 100 UNIT/ML X5UNITS SUBQ SCH (21:39)
[2021-05-06] MEDS: Miconazole 2% ointment 141 APPL/141 GM TUBE TP SCH (21:42)
[2021-05-07 02:37] LABS: Adenovirus Not Detected (Not Detect); Bordetella Pertussis Not Detected (Not Detect); Chlamydophila pneumoniae Not Detected (Not Detect); Coronavirus 229E Not Detected (Not Detect); Coronavirus HKU1 Not Detected (Not Detect); Coronavirus NL63 Not Detected (Not Detect); Coronavirus OC43 Not Detected (Not Detect); Human Metapneumovirus Not Detected (Not Detect); Human Rhinovirus/Enterovirus Not Detected (Not Detect); Influenza A Subtype 2009 H1 Not Detected (Not Detect); Influenza B Not Detected (Not Detect); Mycoplasma pneumoniae Not Detected (Not Detect); Parainfluenza Virus 1 Not Detected (Not Detect); Parainfluenza Virus 2 Not Detected (Not Detect); Parainfluenza Virus 3 Not Detected (Not Detect); Parainfluenza Virus 4 Not Detected (Not Detect); Respiratory Syncytial Virus Not Detected (Not Detect); SARS-CoV-2 Not Detected (Not Detect)
[2021-05-07] MEDS: Ipratropium 1 PUFF INHALER IH SCH ×6 (03:51→23:42)
[2021-05-07 06:44] LABS: Mean Corpuscular HGB Conc 33.3 g/dL (31.6-35.5); Mean Corpuscular Hemoglobin 31.1 pg (28.0-33.3); Mean Corpuscular Volume 93.3 fL (83.0-100.0); Mean Platelet Volume 9.8 fL (9.4-12.4); Platelet Count 223 K/mcL (140-400); Red Blood Count 3.86 M/mcL (4.19-5.50); Red Cell Distribution Width 14.4 % (11.5-14.5); White Blood Count 6.2 K/mcL (4.3-11.1)
[2021-05-07 06:56] LABS: BUN/Creatinine Ratio 11 (6-26); Blood Urea Nitrogen 7 mg/dL (8-23); Calcium 7.7 mg/dL (8.6-10.3); Carbon Dioxide 33 mEq/L (23-29); Chloride 100 mEq/L (98-107); Glucose 161 mg/dL (70-105); Osmolality,Calculated 283 (280-300); Potassium 3.7 mEq/L (3.5-5.1); Sodium 136 mEq/L (136-145); eGFR For African Americans > 60 (> 60); eGFR For Non-African Americans > 60 (> 60)
[2021-05-07] MEDS: Chlorhexidine Rinse 15 ML MOUTHWASH MM SCH ×2 (08:04→20:53)
[2021-05-07] MEDS: Insulin LISPRO 300 UNITS/3 ML VIAL SUBQ SCH ×4 (08:04→20:44)
[2021-05-07] MEDS: Furosemide 20 MG/2 ML VIAL IVP SCH (08:05)
[2021-05-07] MEDS: Cyanocobalamin (B-12) 1,000 MCG TABLET PO SCH (08:05)
[2021-05-07] MEDS: Pyridoxine (B-6) 50 MG TABLET PO SCH (08:05)
[2021-05-07] MEDS: Cholecalciferol (D-3) 1,000 UNIT (25MCG) TABLET PO SCH (08:05)
[2021-05-07] MEDS: Apixaban 5 MG TABLET PO SCH ×2 (08:05→20:49)
[2021-05-07] MEDS: Metoprolol XL (24 HR) Succ 50 MG TAB.ER.24H PO SCH (08:05)
[2021-05-07] MEDS: Carbidopa/Levodopa 25/100 TABLET PO SCH ×2 (08:05→12:29)
[2021-05-07] MEDS: Fluconazole 100 MG TABLET PO SCH (08:05)
[2021-05-07] MEDS: Gabapentin 300 MG CAPSULE PO SCH ×3 (08:05→20:48)
[2021-05-07] MEDS: Aspirin Enteric Coated 81 MG Tablet PO SCH (08:05)
[2021-05-07] MEDS: Miconazole 2% ointment 141 APPL/141 GM TUBE TP SCH ×2 (08:12→21:16)
[2021-05-07] MEDS: Saline Nasal Spray 44 ML BOTTLE NS PRN (20:51)
[2021-05-07] MEDS: Artificial Tears SOLN 15 ML BOTTLE BOTH EYES SCH (20:51)
[2021-05-07] MEDS: Insulin DETEMIR 100 UNIT/ML X5UNITS SUBQ SCH (20:52)
[2021-05-07] MEDS: Furosemide 40 MG/4 ML VIAL IVP SCH (21:36)
[2021-05-08] MEDS: Ipratropium 1 PUFF INHALER IH SCH ×5 (04:27→20:31)
[2021-05-08] MEDS: Cholecalciferol (D-3) 1,000 UNIT (25MCG) TABLET PO SCH (09:35)
[2021-05-08] MEDS: Aspirin Enteric Coated 81 MG Tablet PO SCH (09:36)
[2021-05-08] MEDS: Gabapentin 300 MG CAPSULE PO SCH ×3 (09:36→21:14)
[2021-05-08] MEDS: Metoprolol XL (24 HR) Succ 50 MG TAB.ER.24H PO SCH ×2 (09:36→09:41)
[2021-05-08] MEDS: Cyanocobalamin (B-12) 1,000 MCG TABLET PO SCH (09:36)
[2021-05-08] MEDS: Pyridoxine (B-6) 50 MG TABLET PO SCH (09:37)
[2021-05-08] MEDS: Fluconazole 100 MG TABLET PO SCH (09:37)
[2021-05-08] MEDS: Apixaban 5 MG TABLET PO SCH ×2 (09:38→21:14)
[2021-05-08] MEDS: Furosemide 40 MG/4 ML VIAL IVP SCH ×3 (09:38→21:15)
[2021-05-08] MEDS: Chlorhexidine Rinse 15 ML MOUTHWASH MM SCH ×2 (09:38→21:13)
[2021-05-08] MEDS: Insulin LISPRO 300 UNITS/3 ML VIAL SUBQ SCH ×4 (09:47→21:14)
[2021-05-08] MEDS: Miconazole 2% ointment 141 APPL/141 GM TUBE TP SCH ×2 (10:00→21:15)
[2021-05-08] MEDS: Carbidopa/Levodopa 25/100 TABLET PO SCH ×2 (10:47→16:50)
[2021-05-08 12:32] LABS: Hematocrit 38.4 % (37.5-50.1); Hemoglobin 12.1 g/dL (12.9-16.9); Mean Corpuscular HGB Conc 31.5 g/dL (31.6-35.5); Mean Corpuscular Hemoglobin 29.8 pg (28.0-33.3); Mean Corpuscular Volume 94.6 fL (83.0-100.0); Platelet Count 255 K/mcL (140-400); Red Blood Count 4.06 M/mcL (4.19-5.50); Red Cell Distribution Width 14.4 % (11.5-14.5); White Blood Count 5.9 K/mcL (4.3-11.1)
[2021-05-08 12:52] LABS: BUN/Creatinine Ratio 11 (6-26); Blood Urea Nitrogen 8 mg/dL (8-23); Calcium 7.9 mg/dL (8.6-10.3); Carbon Dioxide 32 mEq/L (23-29); Chloride 97 mEq/L (98-107); Glucose 245 mg/dL (70-105); Osmolality,Calculated 286 (280-300); Potassium 3.7 mEq/L (3.5-5.1); Sodium 135 mEq/L (136-145); eGFR For African Americans > 60 (> 60); eGFR For Non-African Americans > 60 (> 60)
[2021-05-08] MEDS: Artificial Tears SOLN 15 ML BOTTLE BOTH EYES SCH (21:13)
[2021-05-08] MEDS: Insulin DETEMIR 100 UNIT/ML X5UNITS SUBQ SCH (21:15)
[2021-05-09] MEDS: Ipratropium 1 PUFF INHALER IH SCH ×7 (00:19→23:44)
[2021-05-09] MEDS: Gabapentin 300 MG CAPSULE PO SCH ×3 (08:23→22:19)
[2021-05-09] MEDS: Apixaban 5 MG TABLET PO SCH ×2 (08:24→22:19)
[2021-05-09] MEDS: Carbidopa/Levodopa 25/100 TABLET PO SCH ×2 (08:24→12:38)
[2021-05-09] MEDS: Chlorhexidine Rinse 15 ML MOUTHWASH MM SCH ×2 (08:24→22:20)
[2021-05-09] MEDS: Fluconazole 100 MG TABLET PO SCH (08:24)
[2021-05-09] MEDS: Cyanocobalamin (B-12) 1,000 MCG TABLET PO SCH (08:25)
[2021-05-09] MEDS: Aspirin Enteric Coated 81 MG Tablet PO SCH (08:25)
[2021-05-09] MEDS: Metoprolol XL (24 HR) Succ 50 MG TAB.ER.24H PO SCH (08:25)
[2021-05-09] MEDS: Pyridoxine (B-6) 50 MG TABLET PO SCH (08:25)
[2021-05-09] MEDS: Furosemide 40 MG/4 ML VIAL IVP SCH ×2 (08:25→22:19)
[2021-05-09] MEDS: Cholecalciferol (D-3) 1,000 UNIT (25MCG) TABLET PO SCH (08:25)
[2021-05-09] MEDS: Insulin LISPRO 300 UNITS/3 ML VIAL SUBQ SCH ×4 (08:42→22:21)
[2021-05-09] MEDS: Miconazole 2% ointment 141 APPL/141 GM TUBE TP SCH ×2 (11:22→21:35)
[2021-05-09] MEDS: Artificial Tears SOLN 15 ML BOTTLE BOTH EYES SCH (21:35)
[2021-05-09] MEDS: Insulin DETEMIR 100 UNIT/ML X5UNITS SUBQ SCH (21:50)
[2021-05-10 01:12] LABS: Hematocrit 40.4 % (37.5-50.1); Hemoglobin 13.1 g/dL (12.9-16.9); Mean Corpuscular HGB Conc 32.4 g/dL (31.6-35.5); Mean Corpuscular Hemoglobin 30.8 pg (28.0-33.3); Mean Corpuscular Volume 94.8 fL (83.0-100.0); Mean Platelet Volume 9.6 fL (9.4-12.4); Platelet Count 294 K/mcL (140-400); Red Blood Count 4.26 M/mcL (4.19-5.50); Red Cell Distribution Width 14.1 % (11.5-14.5)
[2021-05-10 01:32] LABS: BUN/Creatinine Ratio 11 (6-26); Blood Urea Nitrogen 9 mg/dL (8-23); Calcium 8.3 mg/dL (8.6-10.3); Carbon Dioxide 37 mEq/L (23-29); Chloride 93 mEq/L (98-107); Glucose 240 mg/dL (70-105); Osmolality,Calculated 289 (280-300); Potassium 4.1 mEq/L (3.5-5.1); Sodium 136 mEq/L (136-145); eGFR For African Americans > 60 (> 60); eGFR For Non-African Americans > 60 (> 60)
[2021-05-10] MEDS: Ipratropium 1 PUFF INHALER IH SCH ×5 (04:14→20:06)
[2021-05-10] MEDS: Apixaban 5 MG TABLET PO SCH ×2 (08:24→22:51)
[2021-05-10] MEDS: Carbidopa/Levodopa 25/100 TABLET PO SCH ×2 (08:24→12:24)
[2021-05-10] MEDS: Metoprolol XL (24 HR) Succ 50 MG TAB.ER.24H PO SCH (08:24)
[2021-05-10] MEDS: Cholecalciferol (D-3) 1,000 UNIT (25MCG) TABLET PO SCH (08:24)
[2021-05-10] MEDS: Miconazole 2% ointment 141 APPL/141 GM TUBE TP SCH ×2 (08:25→22:50)
[2021-05-10] MEDS: Cyanocobalamin (B-12) 1,000 MCG TABLET PO SCH (08:25)
[2021-05-10] MEDS: Gabapentin 300 MG CAPSULE PO SCH ×3 (08:25→22:51)
[2021-05-10] MEDS: Pyridoxine (B-6) 50 MG TABLET PO SCH (08:25)
[2021-05-10] MEDS: Chlorhexidine Rinse 15 ML MOUTHWASH MM SCH ×2 (08:25→22:50)
[2021-05-10] MEDS: Aspirin Enteric Coated 81 MG Tablet PO SCH (08:25)
[2021-05-10] MEDS: Insulin LISPRO 300 UNITS/3 ML VIAL SUBQ SCH ×4 (08:26→21:20)
[2021-05-10] MEDS: Insulin DETEMIR 100 UNIT/ML X5UNITS SUBQ SCH ×2 (08:26→22:51)
[2021-05-10] MEDS: Furosemide 40 MG/4 ML VIAL IVP SCH ×2 (08:39→22:50)
[2021-05-10] MEDS: Artificial Tears SOLN 15 ML BOTTLE BOTH EYES SCH (22:50)
[2021-05-11] MEDS: Ipratropium 1 PUFF INHALER IH SCH ×6 (03:54→22:18)
[2021-05-11] MEDS: Carbidopa/Levodopa 25/100 TABLET PO SCH ×2 (08:24→12:00)
[2021-05-11] MEDS: Aspirin Enteric Coated 81 MG Tablet PO SCH (08:24)
[2021-05-11] MEDS: Cholecalciferol (D-3) 1,000 UNIT (25MCG) TABLET PO SCH (08:24)
[2021-05-11] MEDS: Metoprolol XL (24 HR) Succ 50 MG TAB.ER.24H PO SCH (08:24)
[2021-05-11] MEDS: Cyanocobalamin (B-12) 1,000 MCG TABLET PO SCH (08:24)
[2021-05-11] MEDS: Pyridoxine (B-6) 50 MG TABLET PO SCH (08:25)
[2021-05-11] MEDS: Chlorhexidine Rinse 15 ML MOUTHWASH MM SCH ×2 (08:25→20:46)
[2021-05-11] MEDS: Gabapentin 300 MG CAPSULE PO SCH ×3 (08:25→20:46)
[2021-05-11] MEDS: Miconazole 2% ointment 141 APPL/141 GM TUBE TP SCH ×2 (08:25→20:46)
[2021-05-11] MEDS: Apixaban 5 MG TABLET PO SCH ×2 (08:25→20:47)
[2021-05-11] MEDS: Insulin DETEMIR 100 UNIT/ML X5UNITS SUBQ SCH ×2 (08:26→20:47)
[2021-05-11] MEDS: Insulin LISPRO 300 UNITS/3 ML VIAL SUBQ SCH ×4 (08:27→20:47)
[2021-05-11] MEDS: Furosemide 40 MG/4 ML VIAL IVP SCH (08:37)
[2021-05-11] MEDS: Furosemide 20 MG TABLET PO SCH (11:11)
[2021-05-11] MEDS: Budesonide/Formoterol 160/4.5 1 PUFF INH IH SCH ×2 (11:33→22:18)
[2021-05-11] MEDS: Artificial Tears SOLN 15 ML BOTTLE BOTH EYES SCH (20:46)
[2021-05-12] MEDS: Ipratropium 1 PUFF INHALER IH SCH ×5 (00:12→21:39)
[2021-05-12 01:23] LABS: Hematocrit 40.7 % (37.5-50.1); Hemoglobin 12.9 g/dL (12.9-16.9); Mean Corpuscular HGB Conc 31.7 g/dL (31.6-35.5); Mean Corpuscular Hemoglobin 29.9 pg (28.0-33.3); Mean Corpuscular Volume 94.2 fL (83.0-100.0); Platelet Count 301 K/mcL (140-400); Red Blood Count 4.32 M/mcL (4.19-5.50); Red Cell Distribution Width 13.7 % (11.5-14.5); White Blood Count 7.7 K/mcL (4.3-11.1)
[2021-05-12 01:41] LABS: BUN/Creatinine Ratio 19 (6-26); Blood Urea Nitrogen 15 mg/dL (8-23); Calcium 8.4 mg/dL (8.6-10.3); Carbon Dioxide 33 mEq/L (23-29); Chloride 93 mEq/L (98-107); Glucose 171 mg/dL (70-105); Osmolality,Calculated 277 (280-300); Potassium 3.7 mEq/L (3.5-5.1); Sodium 131 mEq/L (136-145); eGFR For African Americans > 60 (> 60); eGFR For Non-African Americans > 60 (> 60)
[2021-05-12] MEDS: Chlorhexidine Rinse 15 ML MOUTHWASH MM SCH ×2 (07:51→20:49)
[2021-05-12] MEDS: Aspirin Enteric Coated 81 MG Tablet PO SCH (07:51)
[2021-05-12] MEDS: Cholecalciferol (D-3) 1,000 UNIT (25MCG) TABLET PO SCH (07:53)
[2021-05-12] MEDS: Metoprolol XL (24 HR) Succ 50 MG TAB.ER.24H PO SCH (07:53)
[2021-05-12] MEDS: Cyanocobalamin (B-12) 1,000 MCG TABLET PO SCH (07:54)
[2021-05-12] MEDS: Apixaban 5 MG TABLET PO SCH ×2 (07:54→20:49)
[2021-05-12] MEDS: Pyridoxine (B-6) 50 MG TABLET PO SCH (07:54)
[2021-05-12] MEDS: Gabapentin 300 MG CAPSULE PO SCH ×3 (07:54→20:49)
[2021-05-12] MEDS: Carbidopa/Levodopa 25/100 TABLET PO SCH ×2 (07:55→12:11)
[2021-05-12] MEDS: Furosemide 20 MG TABLET PO SCH (07:55)
[2021-05-12] MEDS: Insulin LISPRO 300 UNITS/3 ML VIAL SUBQ SCH ×4 (07:57→20:46)
[2021-05-12] MEDS: Insulin DETEMIR 100 UNIT/ML X5UNITS SUBQ SCH ×2 (07:58→20:49)
[2021-05-12] MEDS: Miconazole 2% ointment 141 APPL/141 GM TUBE TP SCH ×2 (08:08→20:48)
[2021-05-12] MEDS: Budesonide/Formoterol 160/4.5 1 PUFF INH IH SCH ×2 (08:22→21:39)
[2021-05-12] MEDS: Artificial Tears SOLN 15 ML BOTTLE BOTH EYES SCH (20:46)
[2021-05-13 02:07] LABS: Basophils # 0.1 K/mcL (0.0-0.2); Eosinophils # 0.1 K/mcL (0.0-0.6); Eosinophils % 1.2 %; Hemoglobin 12.4 g/dL (12.9-16.9); Immature Granulocytes % 1.1 % (0-4); Lymphocytes # 1.7 K/mcL (0.6-4.6); Lymphocytes % 23.5 %; Mean Corpuscular HGB Conc 31.8 g/dL (31.6-35.5); Mean Corpuscular Hemoglobin 29.8 pg (28.0-33.3); Mean Corpuscular Volume 93.8 fL (83.0-100.0); Mean Platelet Volume 10.1 fL (9.4-12.4); Monocytes # 0.9 K/mcL (0.0-1.3); Monocytes % 12.1 %; Neutrophils # 4.4 K/mcL (1.6-8.9); Platelet Count 265 K/mcL (140-400); Red Blood Count 4.16 M/mcL (4.19-5.50); Red Cell Distribution Width 13.7 % (11.5-14.5); Segmented Neutrophils % 61.1 %; White Blood Count 7.3 K/mcL (4.3-11.1)
[2021-05-13 02:09] LABS: BUN/Creatinine Ratio 22 (6-26); Blood Urea Nitrogen 16 mg/dL (8-23); Calcium 8.3 mg/dL (8.6-10.3); Carbon Dioxide 31 mEq/L (23-29); Chloride 95 mEq/L (98-107); Glucose 210 mg/dL (70-105); Osmolality,Calculated 285 (280-300); Sodium 134 mEq/L (136-145); eGFR For African Americans > 60 (> 60); eGFR For Non-African Americans > 60 (> 60)
[2021-05-13 02:47] LABS: Estimated Average Glucose 214 mg/dl; Hemoglobin A1C 9.1 %
[2021-05-13] MEDS: Ipratropium 1 PUFF INHALER IH SCH ×4 (03:58→20:26)
[2021-05-13] MEDS: Pyridoxine (B-6) 50 MG TABLET PO SCH (08:38)
[2021-05-13] MEDS: Cholecalciferol (D-3) 1,000 UNIT (25MCG) TABLET PO SCH (08:38)
[2021-05-13] MEDS: Gabapentin 300 MG CAPSULE PO SCH ×3 (08:39→20:26)
[2021-05-13] MEDS: Furosemide 20 MG TABLET PO SCH (08:39)
[2021-05-13] MEDS: Metoprolol XL (24 HR) Succ 50 MG TAB.ER.24H PO SCH (08:39)
[2021-05-13] MEDS: Cyanocobalamin (B-12) 1,000 MCG TABLET PO SCH (08:39)
[2021-05-13] MEDS: Apixaban 5 MG TABLET PO SCH ×2 (08:39→20:26)
[2021-05-13] MEDS: Aspirin Enteric Coated 81 MG Tablet PO SCH (08:39)
[2021-05-13] MEDS: Carbidopa/Levodopa 25/100 TABLET PO SCH ×2 (08:39→12:11)
[2021-05-13] MEDS: Insulin LISPRO 300 UNITS/3 ML VIAL SUBQ SCH ×4 (08:40→20:22)
[2021-05-13] MEDS: Chlorhexidine Rinse 15 ML MOUTHWASH MM SCH ×2 (08:40→20:26)
[2021-05-13] MEDS: Miconazole 2% ointment 141 APPL/141 GM TUBE TP SCH ×2 (08:40→20:22)
[2021-05-13] MEDS: Insulin DETEMIR 100 UNIT/ML X5UNITS SUBQ SCH ×2 (08:51→20:26)
[2021-05-13] MEDS: Budesonide/Formoterol 160/4.5 1 PUFF INH IH SCH ×2 (08:59→20:27)
[2021-05-13 18:41] VITALS: BP 107/63; PULSE 73; TEMP 98.6; O2SAT 93
[2021-05-13] MEDS: Artificial Tears SOLN 15 ML BOTTLE BOTH EYES SCH (20:22)
== END 2021-05-13 21:40 | disposition other institution (70) | DRG 177 ==
LOC: EMEROOARM 15:29 → 3BNU 15:29 → SUATTDRO 19:16 → 3BNU 20:59 → SUATTDRO 04-06 08:17 → 2NENU 04-11 18:03 → 3ANU 05-03 11:05
PROVIDERS: ADMIT Student in an Organized Health Care Education/Training Program; ATTEND Internal Medicine